=== PATIENT | male | born 1980 | race Caucasian/White ===

== ENCOUNTER → 2018-09-29 | Outpatient (REF) | payer OTHER ==
[2018-10-06 14:07] LABS: PROTEIN C ANTIGEN 149 % (60-150); PROTEIN S ANTIGEN FREE 145 % (57-157); PROTEIN S ANTIGEN TOTAL 113 % (60-150)
== END ==
LOC: M LAB REF 15:15
PROVIDERS: ATTEND Surgery
DX: I74.3 Embolism and thrombosis of arteries of the lower extremities (principal)

== ENCOUNTER 2018-12-04 10:33 | Inpatient (IN) | payer OTHER ==
[~2018-12-04] VITALS: Ht 170.2 cm; Wt 99.8 kg
[~2018-12-04 10:33] MED LIST: ACET-683 PO; AMLO10TA5 PO; CARV25TA PO; GABA-843 PO; HYDR12CA PO; LIDOCAINE 1% MDV 20ML VIAL SQ PRN; LOSA100T50 PO; LR 1,000 ML IV ONE; MELA5TAB20 PO; NORT25CA2 PO; OXYC-517 PO; XARE20TA PO; ceFAZolin SOD 1 GM in D5W MINI-BAG PLUS 50 ML IV ONE
[2018-12-04] MEDS ORDERED: TIZA4TAB4 PO (11:20)
[2018-12-04] MEDS ORDERED: fentaNYL 100 MCG/2 ML INJECTION (J3010) As Ordered ONE (12:03)
[2018-12-04] MEDS ORDERED: MIDAZOLAM INJ 2 MG/2 ML VIAL (J2250) As Ordered ONE (12:03)
[2018-12-04] MEDS ORDERED: LIDOCAINE 2% INJ 100 MG/5 ML SDV (FOR ANES.) As Ordered ONE (12:03)
[2018-12-04] MEDS ORDERED: PROPOFOL 200 MG/20 ML VIAL As Ordered ONE ×2 (12:03→12:06)
[2018-12-04] MEDS ORDERED: ROCURONIUM BROMIDE 50 MG/5 ML VIAL As Ordered ONE (13:21)
[2018-12-04] MEDS ORDERED: EPINEPHrine INJ 1 MG/ML 1ML AMP As Ordered ONE (13:34)
[2018-12-04] MEDS ORDERED: BACITRACIN PWD 50,000 UNITS VIAL As Ordered ONE ×2 (13:35→14:31)
[2018-12-04] MEDS ORDERED: ACETAMINOPHEN 1000MG 100ML IV BTL (OFIRMEV) (J0131 PER 10MG) As Ordered ONE (14:35)
[2018-12-04 15:00] VITALS: BP 187/106
[2018-12-04] MEDS ORDERED: dexameTHASONE 4 MG/ML 1ML VIAL (J1100) As Ordered ONE (15:10)
[2018-12-04] MEDS ORDERED: ONDANSETRON 4MG/2ML VIAL (J2405) As Ordered ONE (15:10)
[2018-12-04 15:30] VITALS: BP 159/103
--- NOTE | 2018-12-04 15:42 | POST-OPPD ---
Postoperative Procedure Note Date Of Procedure: Dec 04, 2018 PREOPERATIVE DIAGNOSIS: Open wound right lateral leg and left stump POSTOPERATIVE DIAGNOSIS: same FINDINGS: Open wound Right lateral leg 11x2cm, Left stump open wound 3.5x3cm PROCEDURE: Irrigation and debridement right and left leg wounds, STSG to Right lateral wound and Left stump wound. Donor site is right thigh SURGEON: Dr Garcia ANESTHESIA: General SPECIMENS: Culture right leg wound and left stump wound ESTIMATED BLOOD LOSS: 10cc REPLACED: none DRAINS: none COMPLICATIONS: none POSTOPERATIVE CONDITION: stable [id number] SALONI GARCIA DO Dec 04, 2018 15:42
[2018-12-04 16:00] VITALS: BP 151/104
[2018-12-04] MEDS ORDERED: HYDROMORPHONE HCL 0.5 MG/ 0.5 ML SYRINGE (J1170 PER 1) IV PRN (16:00)
[2018-12-04] MEDS ORDERED: LR 1,000 ML IV SCH ×2 (16:00)
[2018-12-04] MEDS ORDERED: ONDANSETRON 4MG/2ML VIAL (J2405) IV PRN (16:00)
[2018-12-04] MEDS ORDERED: PERCOCET 5MG/325MG TAB PO PRN (16:00)
[2018-12-04] MEDS ORDERED: fentaNYL 100 MCG/2 ML INJECTION (J3010) IV PRN (16:00)
[2018-12-04] MEDS ORDERED: ACETAMINOPHEN TAB 650MG DOSE (2X325MG) PO PRN (17:30)
[2018-12-04] MEDS ORDERED: oxyCODONE 5MG TAB PO PRN (17:30)
--- NOTE | 2018-12-04 17:31 | IPN ---
DATE: 12/04/2018 The patient was discussed with Dr. Puri, the plastic surgeon, who performed the procedure today. The patient was examined and interviewed on five [place]. The case was discussed with Dr. Villegas about specifically continuing the Xarelto anticoagulation. Dr. Villegas will be communicating with Dr. Jaxson leon concerning the case as well.
[2018-12-04 18:15] VITALS: BP 161/105
[2018-12-04] MEDS: RIVAROXABAN 20 MG TAB (XARELTO) PO SCH (18:26)
--- NOTE | 2018-12-04 18:37 | RO ---
DATE OF PROCEDURE: 12/04/2018 PREOPERATIVE DIAGNOSIS: Open wound right lateral leg and left stump. POSTOPERATIVE DIAGNOSIS: Open wound right lateral leg and left stump. OPERATIVE PROCEDURE: Irrigation and debridement right and left leg wounds, and split thickness skin graft to right lateral wound and a left stump wound. Donor site is right thigh. SURGEON: Deepti Puri DO HOST HOSTESS: ANESTHESIA: General. SPECIMENS: Cultures sent right leg wound and a left stump wound. ESTIMATED BLOOD LOSS: 10 mL REPLACED: No blood replacement needed. DRAINS: None. INDICATION FOR THE PROCEDURE: This is a 38-year-old male who has chronic slow healing wounds in the right lateral leg from previous fasciotomy that he had and on the left stump on the lateral portion and dorsum from a delayed closure of the stump, below the knee amputation (BKA). The patient is scheduled for split thickness skin graft and irrigation of the wounds. All the risks and benefits, and alternatives discussed with the patient and he is ready to proceed. The wound measures, the left side 3.5 x 3 cm and on the right side 11 x 2 cm. DESCRIPTION OF PROCEDURE: The patient was brought into the operating room, placed in supine position, preoperative antibiotics were given. General anesthesia induced. He was prepped and draped in the usual sterile fashion. We did measure the wounds on the table and then debrided the wounds using curettes. Cultures were sent from both wounds. The wound bed is in good quality and ready for grafting. We irrigated both wounds with pulse child life assistant with 1 liter of normal saline with Bacitracin solution. When that portion of the procedure was complete, the donor site was marked for the skin grafting and a 2 inch strip of skin was harvested using a dermatome with 1/12,000 of an inch thickness. The skin was harvested. The wounds covered with gauze soaked with epinephrine solution. The skin was matched 1:1.5 ration and then we applied the skin to the right lateral leg. The graft was stapled to the wound. The rest of the skin was fitted for the left stump open wound and also was stapled. Bolster dressings were applied on the left stump wound with nylon sutures using Xeroform and bacitracin soaked gauze and on the right we used an open Bolster technique and then Kerlix wrapped and an Nishant wrap on the right side. Donor site was dressed with Xeroform, Telfa and, 4 x 4s and Tegaderm. Patient was extubated in the operating room without any difficulties and transferred to the recovery room in stable condition. MTDD
--- NOTE | 2018-12-04 18:52 | HPEPDOC ---
[facility] Medical History & Physical Date of Admission Dec 04, 2018 Date of Service: Dec 04, 2018 Attending Physician: Monroe Cox MD History and Physical CHIEF COMPLAINT: Left stump and right leg nonhealing wound s/p skin graft HISTORY OF PRESENT ILLNESS: Patient is a 38 year old male who presented to [facility] for skin grafting of his right lateral leg and left stump. In August 2018 patient had noted numbness in his legs and toes bilaterally. He stated that he developed coldness in his toes and presented [place] where he was found to have occlusion of his right and left lower extremity. The patient was sent to [facility] where he received arterial stents. Unfortunately, his left leg was unsalvageable and he received a below the knee amputation. Subsequently the patient developed compartment syndrome in both his legs requiring fasciotomy. Sine receiving fasciotomy the patient has had open wounds which were managed by Dr. Gonzalez of Wound Care. The patient was referred for skin grafting of his two open wounds. The patient has received autologous skin grafting of his right lateral leg and left stump. His donor site was from his right lateral thigh. The patients wound was cultured and patient was transferred to medical floor. The hospitalist service was contacted for management of the patient medical conditions while hospitalized. PAST MEDICAL HISTORY: 1. 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 Hypertension 3. Insomnia 4. Phantom limb pain 5. Obstructive Sleep Apnea PAST SURGICAL HISTORY: 1. Lower leg arterial stent placement 2. Left below the knee amputation 3. Amputation of right great toe and right 5th distal phalange 4. Fasciotomy of right and left leg in setting of compartment syndrome 5. Left stump and right leg autologous skin graft 6. Sinus surgery for Obstructive sleep apnea SOCIAL HISTORY: Patient is a current smoker. He smokes approximately 5 cigarettes a day. He has been smoking since he was 16 year old. He denies any illicit or IV drug use. He admits to occasional social alcohol use. 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 Her only medical condition is hypertension. Patients father is alive and well and also has hypertension. Patient has one brother who is alive and well with no medical conditions to his knowledge ALLERGIES: Please see below. REVIEW OF SYSTEMS: CONSTITUTIONAL: Denies fevers, chills, unintentional weightloss. HEENT: Denies changes in vision. Denies dysphagia CARDIOVASCULAR: Denies chest pain or discomfort. Denies feelings of heart racing RESPIRATORY: Denies shortness of breath. Denies wheezing. GASTROINTESTINAL: Denies abdominal pain. Denies constipation. Denies diarrhea GENITOURINARY: Denies dysuria. Denies increased frequency. SKIN: Patient has left leg stump wound. Right lateral thigh wound, right leg wound. MUSCULOSKELETAL: Denies muscle aches or pains NEUROLOGICAL: Denies muscle weakness PSYCHIATRIC: Denies depression or anxiety ENDOCRINE: Denies heat or cold intolerance HEMATOLOGIC/LYMPHATIC: Admits to history of thrombosis HOME MEDICATIONS: Please see below. PHYSICAL EXAMINATION: VITAL SIGNS: Temperature 98.8, pulse 97, respiratory rate 20, blood pressure 113/55, pulse oximetry 92% on room air. GENERAL APPEARANCE: Awake, alert, and oriented. Lying in bed comfortably. Appears in no acute distress. He is pleasant and conversive HEENT: Atraumatic, normocephalic. Eyes are nonicteric. Trachea is midline. Dentition is fair CARDIOVASCULAR: Normal S1, S2. Regular rate and rhythm. No clicks rubs or murmurs. No JVD. No carotid bruits LUNGS: Breath sounds are slightly diminished in the bases with fine crackles. Good respiratory effort. No wheezes. No dullness to percussion. No accessory muscle use ABDOMEN: Soft, nontender. No rebound tenderness or guarding. Nondistended. Normoactive bowel sounds throughout EXTREMITIES: Left leg BKA currently wrapped. Right leg wrapped in bandage. Bandage over right lateral thigh. Amputation of right great toe and right 5th distal phalange NEUROLOGICAL: No focal neurological deficits PSYCHIATRIC: Mood and affect appropriate for situation LABORATORY DATA: See below. MICROBIOLOGY: Please see below. ASSESSMENT: Patient is a 38 year old male s/p right leg wound and left stump autologous graft placement . PLAN: 1. S/P Left leg stump and right leg wound autologous graft placement -Patient is followed by Plastic Surgery. Patient is to be placed on strict bed rest. -Home pain medications continued 2. Hypertension -Patient is currently well controlled will continue home medications 3. History of thrombosis with stent placement -unknown etiology of patients cause of thrombosis. He is currently anticoagulated with Xarelto 20mg. Will continue during his hospitalization. 4. Tobacco abuse -Patient currently smokes 5 cigarettes a day. He has been counseled on smoking cessation Vital Signs Vital Signs Date Time Temp Pulse Resp B/P (MAP) Pulse Ox O2 Delivery O2 Flow Rate FiO2 12/04/18 16:00 79 18 151/91 (111) 95 12/04/18 15:40 97.5 12/04/18 15:20 10 Laboratory Data Microbiology Microbiology 12/04/18 Wound Culture, Received Pending 12/04/18 Wound Culture, Received Pending Home Medications Scheduled Amlodipine Besylate (Amlodipine Besylate) 10 Mg Tablet, 10 MG PO DAILY Carvedilol (Carvedilol) 25 Mg Tablet, 25 MG PO BID Gabapentin (Gabapentin) 300 Mg Capsule, 300 MG PO TID Hydrochlorothiazide (Hydrochlorothiazide) 12.5 Mg Capsule, 12.5 MG PO DAILY Losartan Potassium (Losartan Potassium) 100 Mg Tablet, 100 MG PO DAILY Melatonin (Melatonin) 5 Mg Tab.rapdis, 5 MG PO QHS Nortriptyline HCl (Nortriptyline HCl) 25 Mg Capsule, 25 MG PO QHS Rivaroxaban (Xarelto) 20 Mg Tablet, 20 MG PO QPM Scheduled PRN Acetaminophen (Acetaminophen) 500 Mg Tablet, 1,000 MG PO BID PRN for ABDOMINAL PAIN Oxycodone HCl (Oxycodone HCl) 5 Mg Tablet, 5 MG PO PRN PRN for PAIN Tizanidine HCl (Tizanidine HCl) 4 Mg Tablet, 4 MG PO QIDP PRN for SPASMS Allergies Uncoded Allergies: MENS MULTIVITAMIN (Allergy, Intermediate, lip swelling, hands redness, 11/25/18) A-FIB/CHADSVASC A-FIB History Current/History of A-Fib/PAF?: No KAMILA WRIGHT DO Dec 04, 2018 17:21
[2018-12-04 18:58] VITALS: BP 156/105
[2018-12-04 20:17] VITALS: BP 159/105
[2018-12-04] MEDS: NORTRIPTYLINE 25 MG CAP PO SCH (21:34)
[2018-12-04] MEDS: GABAPENTIN 300 MG CAP PO SCH (21:34)
[2018-12-04] MEDS: CARVedilol 12.5 MG TAB PO SCH (21:35)
[2018-12-05 02:00] VITALS: BP 152/104
[2018-12-05 06:26] VITALS: BP 158/118
[2018-12-05 06:52] LABS: HEMATOCRIT 42.5 % (42.0-52.0); HEMOGLOBIN 13.5 g/dl (13.5-17.5); MEAN CORPUSCULAR HEMOGLOBIN 26.6 pg (27.0-33.0); MEAN CORPUSCULAR HGB CONC 31.8 g/dl (32.0-36.5); MEAN CORPUSCULAR VOLUME 83.8 fl (80.0-96.0); PLATELET COUNT, AUTOMATED 363 10^3/uL (150-450); RED BLOOD COUNT 5.07 10^6/uL (4.30-6.10); WHITE BLOOD COUNT 9.9 10^3/uL (4.0-10.0)
[2018-12-05 07:19] LABS: BLOOD UREA NITROGEN 16 MG/DL (7-18); CALCIUM LEVEL 8.7 MG/DL (8.5-10.1); CARBON DIOXIDE LEVEL 28 MEQ/L (21-32); CHLORIDE LEVEL 103 MEQ/L (98-107); CREATININE FOR GFR 0.92 MG/DL (0.70-1.30); GLOMERULAR FILTRATION RATE > 60.0 (>60); GLUCOSE, FASTING 120 MG/DL (70-100); POTASSIUM SERUM 4.1 MEQ/L (3.5-5.1); SODIUM LEVEL 139 MEQ/L (136-145)
[2018-12-05] MEDS: CARVedilol 12.5 MG TAB PO SCH ×2 (09:09→20:25)
[2018-12-05] MEDS: LOSARTAN 50 MG TAB PO SCH (09:10)
[2018-12-05] MEDS: hydroCHLOROthiazide 12.5 MG CAPSULE PO SCH (09:10)
[2018-12-05] MEDS: amLODIPine 10 MG TAB PO SCH (09:10)
[2018-12-05] MEDS: GABAPENTIN 300 MG CAP PO SCH ×3 (09:11→20:24)
--- NOTE | 2018-12-05 09:24 | IPNPDOC ---
Text Note Date of Service The patient was seen on 12/05/18. NOTE Pt was seen at bedside today and denies any acute events or changes to his condition overnight. He states he is eating well and was able to sleep well also. He denies any current pain or itchiness in his legs or elsewhere. He says he has not had a BM since admission but that he believes he will tonight. He denies any N/V, chest pain, shortness of breath, or dysuria. Physical Exam: General: Pt was laying in his bed watching videos on his phone in no apparent distress. HEENT: Good dentition. Mucous membranes are moist. No ulcers, sores, or plaques noted. No lymphadenopathy. 1-2 cm scar noted on his L periorbital cheek. Pulmonary: Lungs CTA B/L - crackles heard yesterday (12/04) no longer present. No consolidation noted upon percussion. Vesicular breath sounds heard throughout exam. Cardiovascular: Eurythmic and tachycardic. Normal S1 and S2 noted with no murmurs, knocks, rubs noted. Hypertensive at 146/89. No carotid bruits noted. Abdomen: No pain on palpation or guarding noted. Normal bowel sounds in all 4 quadrants. No bruising or organomegaly noted on exam. Extremities: Skin graft harvest site on L thigh bandaged with wrap. Some blood noted from a partially uncovered section of his harvest site on his proximal R thigh. L leg stump and R foot bandaged as well and not painful to palpation. Good capillary refill in his fingers with refill time of 3-4 seconds in his toes. Toes are cool to touch. No pain to palpation of his R calf or foot. No rashes noted. Psych: Well-mannered and cooperative to exam. Alert and aware X3. Pt seemed happy to talk about his father classic muscle cars. Asked about visiting hour for his parents who are coming tomorrow. Is eating regularly. Denies SI or depression currently. Assessment and Plan: #Skin Graft following B/L fasciotomies and L BKA: Patient is to be kept on strict bed rest. His wounds are being managed by Plastic Surgery. He has some oozing at his harvest site. He denies any current pain and is currently on Oxycodone and acetaminophen PRN. #HTN: Pt currently hypertensive. He is currently on HCTZ 12.5 mg, amlodipine 10 mg, Losartan 100 mg, and Carvedilol 25 mg. . Pt will likely need further workup for secondary causes of HTN upon discharge. HTN could be related to pain #Phantom limb pain: Continue Gabapentin. Pt denies worsening of his pain or paresthesia. Disposition: Patient will be hospitalized for at least one week while graft sets. VS,Fishbone, I+O VS, Fishbone, I+O Laboratory Tests 12/05/18 05:40 Red Blood Count 5.07, Mean Corpuscular Volume 83.8, Mean Corpuscular Hemoglobin 26.6 L, Mean Corpuscular Hemoglobin Concent 31.8 L, Red Cell Distribution Width 16.1 H, Calcium Level 8.7 Vital Signs Date Time Temp Pulse Resp B/P (MAP) Pulse Ox O2 Delivery O2 Flow Rate FiO2 12/05/18 06:26 99.6 94 19 158/118 (131) 98 12/04/18 15:20 10 I&O- Last 24 Hours up to 6 AM 12/05/18 06:00 Intake Total 3880 ml Output Total 3650 ml Balance 230 ml GME ATTESTATION GME ATTESTATION My faculty preceptor for this patient encounter was physically present during the encounter and was fully available. All aspects of the patient interview, ex amination, medical decision making process, and medical care plan development were reviewed and approved by the faculty preceptor. The faculty preceptor is aware and concurs with the plan as stated in the body of this note and will attest to such by his/her cosignature. ATTENDING NOTE Patient was seen and examined by me this morning with the residents. Agree with the above assessment and plan FATOUMATA DINERO OMS-3 Dec 05, 2018 09:24 KAMILA WRIGHT DO Dec 05, 2018 17:51 VEDA REDMOND MD Dec 06, 2018 16:57
--- NOTE | 2018-12-05 10:16 | IPNPDOC ---
Subjective General Date/Time Seen The patient was seen on 12/05/18 at 8:09. Subject Chief Complaint/History The patient is a 38-year-old male admitted with a reason for visit of Thrombocytopenia, Open Wound Right Lower Extremity. Patient s/p STSG to right lateral leg wound and left stump wound. Donor site Right thigh. Doing well today. Donor site has significant oozing, controlled with pressure. Pain controlled with meds. No other complains. No nausea, vomiting. Current Medications Current Medications Current Medications Medications (Trade) Dose Ordered Sig/Milla Route PRN Reason Start Time Stop Time Status Last Admin Dose Admin Acetaminophen (Tylenol Tab) 650 mg Q4H PRN PO PAIN OR FEVER 12/04/18 17:30 Amlodipine Besylate (Norvasc) 10 mg DAILY PO 12/05/18 09:00 12/05/18 09:10 Carvedilol (COReg) 25 mg BID PO 12/04/18 21:00 12/05/18 09:09 Fentanyl Citrate (Sublimaze) 25 mcg Q5MP PRN IV MODERATE PAIN (PS 4-7) 12/04/18 16:00 12/04/18 17:00 DC Gabapentin (Neurontin) 300 mg TID PO 12/04/18 21:00 12/05/18 09:11 Hydrochlorothiazide (Hydrodiuril) 12.5 mg DAILY PO 12/05/18 09:00 12/05/18 09:10 Hydromorphone HCl (Dilaudid) 0.4 mg Q5MP PRN IV MODERATE/SEVERE PAIN (PS 5-10) 12/04/18 16:00 12/04/18 17:00 DC Lactated Ringer's 1,000 ml @ 75 mls/hr [id number] IV 12/04/18 16:00 12/05/18 09:54 DC 12/04/18 18:26 Lactated Ringer's 1,000 ml @ 100 mls/hr Q10H IV 12/04/18 16:00 12/04/18 17:00 DC Lidocaine HCl (LIDOCAINE 1% MDV 20ml) 0.1 ml ONCE PRN SQ DISCOMFORT BEFORE IV START 12/04/18 06:00 12/04/18 15:46 DC Losartan Potassium (Cozaar) 100 mg DAILY PO 12/05/18 09:00 12/05/18 09:10 Nortriptyline HCl (Pamelor) 25 mg QHS PO 12/04/18 21:00 12/04/18 21:34 Ondansetron HCl (ZOFRAN INJection) 4 mg Q4HP PRN IV NAUSEA OR VOMITING 12/04/18 16:00 12/04/18 17:00 DC Oxycodone HCl (Roxicodone, Oxyir) 5 mg Q6HP PRN PO PAIN 12/04/18 17:30 Oxycodone/ Acetaminophen (Percocet 5mg/ 325mg Tablet) 1 tab ASDIRECTED PRN PO MILD/MODERATE PAIN (PS 1-7) 12/04/18 16:00 12/04/18 17:00 DC Rivaroxaban (Xarelto) 20 mg QPM@1800 PO 12/04/18 18:00 12/04/18 18:26 Allergies Uncoded Allergies: MENS MULTIVITAMIN (Allergy, Intermediate, lip swelling, hands redness, 11/25/18) Objective Physical Examination Examination GENERAL APPEARANCE:Patient seen, laying in bed, awake, alert, and oriented. Comfortable, in no acute distress. SKIN: Warm and moist. Dressings intact. Donor site with serosanguinous oozing, no active bleeding. Mild pain. HEENT: Normocephalic, atraumatic. [place] palpebral conjunctiva, anicteric sclerae. Lips and mucosa appear moist. NECK: Supple, no thyromegaly. No obvious jugular venous distention. LUNGS: Clear to auscultation bilaterally. No wheezing appreciated. HEART: No chest wall abnormalities. Regular rate and rhythm with no murmurs a ppreciated. EXTREMITIES: Extremities have no deformities. No edema identified in both extremities. Vital Signs Vital Signs Date Time Temp Pulse Resp B/P (MAP) Pulse Ox O2 Delivery O2 Flow Rate FiO2 12/05/18 09:10 158/118 12/05/18 09:10 94 12/05/18 06:26 99.6 19 98 12/04/18 15:20 10 I&Os I&O- Last 24 Hours up to 6 AM 12/05/18 06:00 Intake Total 3880 ml Output Total 3650 ml Balance 230 ml Laboratory Data Labs 24H Laboratory Tests 2 12/05/18 05:40: Nucleated Red Blood Cells % (auto) 0.0, Anion Gap 8, Glomerular Filtration Rate > 60.0, Blood Urea Nitrogen 16, Creatinine 0.92, Sodium Level 139, Potassium Level 4.1, Chloride Level 103, Carbon Dioxide Level 28, Calcium Level 8.7 CBC/BMP Laboratory Tests 12/05/18 05:40 Red Blood Count 5.07, Mean Corpuscular Volume 83.8, Mean Corpuscular Hemoglobin 26.6 L, Mean Corpuscular Hemoglobin Concent 31.8 L, Red Cell Distribution Width 16.1 H, Calcium Level 8.7 Microbiology Microbiology 12/04/18 Wound Culture, Received Pending 12/04/18 Wound Culture, Received Pending Impression Chronic open wounds right leg and left stump. S/p STSG to Right leg and left stump POD 1. Doing well post op. Medical management by medicine team. Donor site dressing reinforced. Plan to remove outer dressing Saturday. Recipient site plan to remove 12/11/18 Continue with bedrest. Regular diet D/c IVF Continue with wound monitoring. Plan / VTE VTE Prophylaxis Ordered?: Yes VTE Exclusion Mechanical Proph: Other (On Xarelto) SALONI GARCIA DO Dec 05, 2018 10:16
[2018-12-05 14:00] VITALS: BP 146/89
[2018-12-05] MEDS: RIVAROXABAN 20 MG TAB (XARELTO) PO SCH (17:08)
[2018-12-05] MEDS: NORTRIPTYLINE 25 MG CAP PO SCH (20:24)
[2018-12-05 22:00] VITALS: BP 146/90
[2018-12-06 06:00] VITALS: BP 156/101
[2018-12-06] MEDS ORDERED: VANCOMYCIN HCL 1,000 MG, VIAL MATE ADAPTER 1 EACH in D5W 250 ML IV SCH (09:30)
[2018-12-06] MEDS: CARVedilol 12.5 MG TAB PO SCH ×2 (09:44→21:39)
[2018-12-06] MEDS: LOSARTAN 50 MG TAB PO SCH (09:44)
[2018-12-06] MEDS: GABAPENTIN 300 MG CAP PO SCH ×3 (09:44→21:39)
[2018-12-06] MEDS: amLODIPine 10 MG TAB PO SCH (09:45)
[2018-12-06] MEDS: hydroCHLOROthiazide 12.5 MG CAPSULE PO SCH (09:45)
[2018-12-06] MEDS ORDERED: VANCOMYCIN HCL 1,000 MG, VIAL MATE ADAPTER 1 EACH in D5W 250 ML IV ONE (10:00)
--- NOTE | 2018-12-06 12:57 | IPNPDOC ---
Text Note Date of Service The patient was seen on 12/06/18. NOTE Pt was seen at bedside today and denies any acute events or changes to his condition overnight. Physical Exam: General: Pt was laying in his bed watching videos on his phone in no apparent distress. HEENT: Good dentition. Mucous membranes are moist. Pulmonary: Lungs CTA B/L, clear breath sounds heard throughout exam. No rhonchi, no rales Cardiovascular: Normal S1 and S2 noted with no murmurs. No carotid bruits noted. Abdomen: No pain on palpation or guarding noted. Normal bowel sounds in all 4 quadrants. No bruising or organomegaly noted on exam. Extremities: Skin graft harvest site on L thigh bandaged with wrap. Some blood noted from a partially uncovered section of his harvest site on his proximal R thigh. L leg stump and R foot bandaged as well and not painful to palpation. Neurologic exam grossly normal Psych: Alert and aware X3. Assessment and Plan: This is a young patient who unfortunately was diagnosed with hypercoagulable state. After he was diagnosed with bilateral acute limb ischemia resulting in left BKA and bilateral compartment syndrome resulting in bilateral fasciotomies. He has had an extensive workup for hypercoagulable state with no definite diagnosis. He has been kept on Xarelto. He underwent skin graft from the left thigh harvest site, and currently has been managed by plastic surgery. The patient on wound culture was growing MRSA with Enterobacter and for that reason the patient was initially started on vancomycin, but as the patient does not have an excellent does not want to be poked again, the patient has been kept on Zyvox. Mainly care has been given by plastic surgery and will continue to follow with them 1. Skin Graft due to chronic ulcers following B/L fasciotomies and LBKA: Patient is to be kept on strict bed rest. His wounds are being managed by Plastic Surgery. He has some oozing at his harvest site. He denies any current pain and is currently on Oxycodone and acetaminophen PRN. He continues to be on Xarelto which has been cleared by plastic surgery. Will touch base with them again. As the wound cultures are growing Enterobacter as well as MRSA. The patient has been kept on Zyvox 2. HTN: He is currently on HCTZ 12.5 mg, amlodipine 10 mg, Losartan 100 mg, and Carvedilol 25 mg. . 3. Phantom limb pain: Continue Gabapentin. Pt denies worsening of his pain or paresthesia. 4. Hypercoagulable state. Under evaluation at the outside facility. And he continue with Xarelto PT, OT Disposition: Patient will be hospitalized for at least one week while graft sets as per plastic surgery. Erin Escobar M.D VS,Terra, I+O VS, Terra, I+O Vital Signs Date Time Temp Pulse Resp B/P (MAP) Pulse Ox O2 Delivery O2 Flow Rate FiO2 12/06/18 09:45 83 152/102 12/06/18 06:00 98.5 18 96 12/04/18 15:20 10 I&O- Last 24 Hours up to 6 AM 12/06/18 06:00 Intake Total 2100 ml Output Total 1100 ml Balance 1000 ml VEDA REDMOND MD Dec 06, 2018 12:57
--- NOTE | 2018-12-06 13:00 | IPNPDOC ---
Subjective General Date/Time Seen The patient was seen on 12/06/18 at 12:48. Subject Chief Complaint/History The patient is a 38-year-old male admitted with a reason for visit of Thrombocytopenia, Open Wound Right Lower Extremity. Patient s/p STSG POD 2. Doing well Pain controlled. Did not have BM yet. Oozing from donor size greatly diminished. Current Medications Current Medications Current Medications Medications (Trade) Dose Ordered Sig/Milla Route PRN Reason Start Time Stop Time Status Last Admin Dose Admin Acetaminophen (Tylenol Tab) 650 mg Q4H PRN PO PAIN OR FEVER 12/04/18 17:30 Amlodipine Besylate (Norvasc) 10 mg DAILY PO 12/05/18 09:00 12/06/18 09:45 Carvedilol (COReg) 25 mg BID PO 12/04/18 21:00 12/06/18 09:44 Docusate Sodium (Colace) 100 mg TID PO 12/06/18 16:00 Fentanyl Citrate (Sublimaze) 25 mcg Q5MP PRN IV MODERATE PAIN (PS 4-7) 12/04/18 16:00 12/04/18 17:00 DC Gabapentin (Neurontin) 300 mg TID PO 12/04/18 21:00 12/06/18 09:44 Hydrochlorothiazide (Hydrodiuril) 12.5 mg DAILY PO 12/05/18 09:00 12/06/18 09:45 Hydromorphone HCl (Dilaudid) 0.4 mg Q5MP PRN IV MODERATE/SEVERE PAIN (PS 5-10) 12/04/18 16:00 12/04/18 17:00 DC Lactated Ringer's 1,000 ml @ 75 mls/hr [id number] IV 12/04/18 16:00 12/05/18 09:54 DC 12/04/18 18:26 Lactated Ringer's 1,000 ml @ 100 mls/hr Q10H IV 12/04/18 16:00 12/04/18 17:00 DC Lidocaine HCl (LIDOCAINE 1% MDV 20ml) 0.1 ml ONCE PRN SQ DISCOMFORT BEFORE IV START 12/04/18 06:00 12/04/18 15:46 DC Linezolid (Zyvox) 600 mg BID PO 12/06/18 21:00 Losartan Potassium (Cozaar) 100 mg DAILY PO 12/05/18 09:00 12/06/18 09:44 Nortriptyline HCl (Pamelor) 25 mg QHS PO 12/04/18 21:00 12/06/18 11:11 DC 12/05/18 20:24 Ondansetron HCl (ZOFRAN INJection) 4 mg Q4HP PRN IV NAUSEA OR VOMITING 12/04/18 16:00 12/04/18 17:00 DC Oxycodone HCl (Roxicodone, Oxyir) 5 mg Q6HP PRN PO PAIN 12/04/18 17:30 Oxycodone/ Acetaminophen (Percocet 5mg/ 325mg Tablet) 1 tab ASDIRECTED PRN PO MILD/MODERATE PAIN (PS 1-7) 12/04/18 16:00 12/04/18 17:00 DC Rivaroxaban (Xarelto) 20 mg QPM@1800 PO 12/04/18 18:00 12/05/18 17:08 Vancomycin HCl 1000 mg/IV Miscellaneous Supplies 1 each/ Dextrose 270 ml @ 270 mls/hr Q12H IV 12/06/18 09:30 12/06/18 10:58 DC Allergies Uncoded Allergies: MENS MULTIVITAMIN (Allergy, Intermediate, lip swelling, hands redness, 11/25/18) Objective Physical Examination Examination GENERAL APPEARANCE:Patient seen, laying in bed, awake, alert, and oriented. Comfortable, in no acute distress. SKIN: Warm and moist. LUNGS: Clear to auscultation bilaterally. No wheezing appreciated. HEART: No chest wall abnormalities. Regular rate and rhythm with no murmurs appreciated. EXTREMITIES: Right leg with dressing in place. Donor site: right upper thigh with residual serosanguinous oozing, much improved. Left stump with dressing in place. No swelling, no pain. Vital Signs Vital Signs Date Time Temp Pulse Resp B/P (MAP) Pulse Ox O2 Delivery O2 Flow Rate FiO2 12/06/18 09:45 83 152/102 12/06/18 06:00 98.5 18 96 12/04/18 15:20 10 I&Os I&O- Last 24 Hours up to 6 AM 12/06/18 06:00 Intake Total 2100 ml Output Total 1100 ml Balance 1000 ml Laboratory Data Microbiology Microbiology 12/04/18 Wound Culture - Preliminary, Resulted Enterobacter Cloacae Complex Strep Agalactiae Group B 12/04/18 Wound Culture - Preliminary, Resulted Enterobacter Cloacae Complex Staph.aureus Methicillin Resis Strep Agalactiae Group B Impression S/p Irrigation and debridment Left stump and Right lateral open wounds with STSG closure. Cultures (+), ID consult. Abx started today. Donor site dressing removed. Keep open to air to dry. Recipient sites dressing will remove 12/11/18 Colace Continue with bedrest. All finding and plan discussed with patient Plan / VTE VTE Prophylaxis Ordered?: Yes VTE Exclusion Mechanical Proph: Other (On Xarelto) SALONI GARCIA DO Dec 06, 2018 13:00
[2018-12-06 14:00] VITALS: BP 157/103
[2018-12-06 14:30] VITALS: BP 144/98
[2018-12-06] MEDS: DOCUSATE SODIUM 100 MG CAP PO SCH ×2 (16:15→21:00)
[2018-12-06] MEDS: RIVAROXABAN 20 MG TAB (XARELTO) PO SCH (17:46)
[2018-12-06] MEDS: LINEZOLID 600MG TABLET (ZYVOX) PO SCH (21:40)
[2018-12-06 22:00] VITALS: BP 152/88
[2018-12-07 06:00] VITALS: BP 140/82
[2018-12-07 09:25] VITALS: BP 173/141
[2018-12-07] MEDS: hydroCHLOROthiazide 12.5 MG CAPSULE PO SCH (09:25)
[2018-12-07] MEDS: LOSARTAN 50 MG TAB PO SCH (09:25)
[2018-12-07] MEDS: DOCUSATE SODIUM 100 MG CAP PO SCH ×3 (09:25→21:02)
[2018-12-07] MEDS: CARVedilol 12.5 MG TAB PO SCH ×2 (09:26→21:03)
[2018-12-07] MEDS: GABAPENTIN 300 MG CAP PO SCH ×3 (09:26→21:02)
[2018-12-07] MEDS: amLODIPine 10 MG TAB PO SCH (09:26)
[2018-12-07] MEDS: LINEZOLID 600MG TABLET (ZYVOX) PO SCH ×2 (09:26→21:02)
--- NOTE | 2018-12-07 11:21 | IPNPDOC ---
Subjective Date Seen The patient was seen on 12/07/18. Subjective Chief Complaint/HPI Patient is a completely sitting in bed as per patient, has been fanning his dressing on right side of his no new complaints General: Denies: ROS Unobtainable, Chills, Night Sweats, Fatigue, Malaise, Normal Appetite, Other Symptoms Constitutional: Denies: Chills, Fever, Malaise, Night Sweats, Weakness, Fatigue, Weight Loss, Lethargy, Other Skin: Denies: Rash, Lesions, Jaundice, Bruising, Itching, Dry, Breakdown, Nail Changes, Other Pulmonary: Denies: Dyspnea, Cough, Pleuritic Chest Pain, Other Symptoms Cardiovascular: Denies: Chest Pain, Palpitations, Orthopnea, Paroxysmal Noc. Dyspnea, Edema, Lt Headedness, Other Symptoms Gastrointestinal: Denies: Nausea, Vomiting, Abdominal Pain, Diarrhea, Constipation, Melena, Hematochezia, Other Symptoms Musculoskeletal: Denies: Neck Pain, Back Pain, Shoulder Pain, Arm Pain, Hand Pain, Leg Pain, Foot Pain, Joint Pain, Muscle Pain, Spasms, Other Symptoms Neurological: Denies: Weakness, Numbness, Incoordination, Change in speech, Confusion, Seizures, Other Symptoms Objective Physical Examination General Exam: Positive: Alert, Cooperative Eye Exam: Positive: PERRLA, Conjunctiva & lids normal ENT Exam: Positive: Atraumatic Chest Exam: Positive: Clear to auscultation, Normal air movement Heart Exam: Positive: Rate Normal, Normal S1, Normal S2 Abdomen Exam: Positive: Normal bowel sounds, Soft, Tenderness Extremity Exam: Positive: Normal pulses Skin Exam: Positive: Nl turgor and temperature Neuro Exam: Positive: Strength at 5/5 X4 ext, Sensation Intact Assessment /Plan Problems (1) History of skin graft Status: Acute Problem Text: Skin Graft due to chronic ulcers following B/L fasciotomies and LBKA: Patient is to be kept on strict bed rest. His wounds are being managed by Plastic Surgery. He has some oozing at his harvest site. He denies any current pain and is currently on Oxycodone and acetaminophen PRN. He continues to be on Xarelto which has been cleared by plastic surgery. Will touch base with them again. As the wound cultures are growing Enterobacter as well as MRSA. The patient has been kept on Zyvox further recommendation as per plastic surgery Plan/VTE VTE Prophylaxis Ordered?: Yes VTE Exclusion Mechanical Proph: Other (On Xarelto) VS, I&O, 24H, Fishbone Vital Signs/I&O Vital Signs Date Time Temp Pulse Resp B/P (MAP) Pulse Ox O2 Delivery O2 Flow Rate FiO2 12/07/18 09:26 101 173/141 12/07/18 06:00 97.4 20 99 12/04/18 15:20 10 I&O- Last 24 Hours up to 6 AM 12/07/18 06:00 Intake Total 1100 ml Output Total 3585 ml Balance -2485 ml Laboratory Data Microbiology Microbiology 12/04/18 Wound Culture - Final, Complete Enterobacter Cloacae Complex Strep Agalactiae Group B 12/04/18 Wound Culture - Final, Complete Enterobacter Cloacae Complex Staph.aureus Methicillin Resis Strep Agalactiae Group B MARISSA HAQUE MD Dec 07, 2018 11:21
--- NOTE | 2018-12-07 13:32 | IPNPDOC ---
Subjective General Date/Time Seen The patient was seen on 12/07/18 at 13:28. Subject Chief Complaint/History The patient is a 38-year-old male admitted with a reason for visit of Thrombocytopenia, Open Wound Right Lower Extremity. Patient s/p I/D right and left open wounds with STSG coverage. Doing well today. Had a BM last night. No complains. Current Medications Current Medications Current Medications Medications (Trade) Dose Ordered Sig/Milla Route PRN Reason Start Time Stop Time Status Last Admin Dose Admin Acetaminophen (Tylenol Tab) 650 mg Q4H PRN PO PAIN OR FEVER 12/04/18 17:30 Amlodipine Besylate (Norvasc) 10 mg DAILY PO 12/05/18 09:00 12/07/18 09:26 Carvedilol (COReg) 25 mg BID PO 12/04/18 21:00 12/07/18 09:26 Docusate Sodium (Colace) 100 mg TID PO 12/06/18 16:00 12/07/18 09:25 Fentanyl Citrate (Sublimaze) 25 mcg Q5MP PRN IV MODERATE PAIN (PS 4-7) 12/04/18 16:00 12/04/18 17:00 DC Gabapentin (Neurontin) 300 mg TID PO 12/04/18 21:00 12/07/18 09:26 Hydrochlorothiazide (Hydrodiuril) 12.5 mg DAILY PO 12/05/18 09:00 12/07/18 09:25 Hydromorphone HCl (Dilaudid) 0.4 mg Q5MP PRN IV MODERATE/SEVERE PAIN (PS 5-10) 12/04/18 16:00 12/04/18 17:00 DC Lactated Ringer's 1,000 ml @ 75 mls/hr [id number] IV 12/04/18 16:00 12/05/18 09:54 DC 12/04/18 18:26 Lactated Ringer's 1,000 ml @ 100 mls/hr Q10H IV 12/04/18 16:00 12/04/18 17:00 DC Lidocaine HCl (LIDOCAINE 1% MDV 20ml) 0.1 ml ONCE PRN SQ DISCOMFORT BEFORE IV START 12/04/18 06:00 12/04/18 15:46 DC Linezolid (Zyvox) 600 mg BID PO 12/06/18 21:00 12/07/18 09:26 Losartan Potassium (Cozaar) 100 mg DAILY PO 12/05/18 09:00 12/07/18 09:25 Nortriptyline HCl (Pamelor) 25 mg QHS PO 12/04/18 21:00 12/06/18 11:11 DC 12/05/18 20:24 Ondansetron HCl (ZOFRAN INJection) 4 mg Q4HP PRN IV NAUSEA OR VOMITING 12/04/18 16:00 12/04/18 17:00 DC Oxycodone HCl (Roxicodone, Oxyir) 5 mg Q6HP PRN PO PAIN 12/04/18 17:30 Oxycodone/ Acetaminophen (Percocet 5mg/ 325mg Tablet) 1 tab ASDIRECTED PRN PO MILD/MODERATE PAIN (PS 1-7) 12/04/18 16:00 12/04/18 17:00 DC Rivaroxaban (Xarelto) 20 mg QPM@1800 PO 12/04/18 18:00 12/06/18 17:46 Vancomycin HCl 1000 mg/IV Miscellaneous Supplies 1 each/ Dextrose 270 ml @ 270 mls/hr Q12H IV 12/06/18 09:30 12/06/18 10:58 DC Allergies Uncoded Allergies: MENS MULTIVITAMIN (Allergy, Intermediate, lip swelling, hands redness, 11/25/18) Objective Physical Examination Examination GENERAL APPEARANCE:Patient seen, laying in bed, awake, alert, and oriented. Comfortable, in no acute distress. SKIN: Warm and moist. LUNGS: Clear to auscultation bilaterally. No wheezing appreciated. HEART: No chest wall abnormalities. Regular rate and rhythm with no murmurs appreciated. EXTREMITIES: Both recipient sites with dressings intact, no seeping drainage. Donor site drying well, no signs of infection. Vital Signs Vital Signs Date Time Temp Pulse Resp B/P (MAP) Pulse Ox O2 Delivery O2 Flow Rate FiO2 12/07/18 09:26 101 173/141 12/07/18 06:00 97.4 20 99 12/04/18 15:20 10 I&Os I&O- Last 24 Hours up to 6 AM 12/07/18 06:00 Intake Total 1100 ml Output Total 3585 ml Balance -2485 ml Laboratory Data Microbiology Microbiology 12/04/18 Wound Culture - Final, Complete Enterobacter Cloacae Complex Strep Agalactiae Group B 12/04/18 Wound Culture - Final, Complete Enterobacter Cloacae Complex Staph.aureus Methicillin Resis Strep Agalactiae Group B Impression S/p STSG right and left LE open wounds. Doing well Continue with bedrest Donor site is healing appropriately Continue with medical management per medical team Will remove recipient site dressings on Plan / VTE VTE Prophylaxis Ordered?: Yes VTE Exclusion Mechanical Proph: Other (On Xarelto) SALONI GARCIA DO Dec 07, 2018 13:32
[2018-12-07 14:33] VITALS: BP 130/97
[2018-12-07] MEDS: RIVAROXABAN 20 MG TAB (XARELTO) PO SCH (17:56)
[2018-12-07 20:02] VITALS: BP 136/84
[2018-12-08 06:00] VITALS: BP 142/78
[2018-12-08] MEDS: CARVedilol 12.5 MG TAB PO SCH ×2 (09:34→20:17)
[2018-12-08] MEDS: amLODIPine 10 MG TAB PO SCH (09:35)
[2018-12-08] MEDS: GABAPENTIN 300 MG CAP PO SCH ×3 (09:35→20:16)
[2018-12-08] MEDS: LINEZOLID 600MG TABLET (ZYVOX) PO SCH ×2 (09:35→20:16)
[2018-12-08] MEDS: LOSARTAN 50 MG TAB PO SCH (09:35)
[2018-12-08] MEDS: DOCUSATE SODIUM 100 MG CAP PO SCH ×4 (09:35→20:19)
[2018-12-08] MEDS: hydroCHLOROthiazide 12.5 MG CAPSULE PO SCH (09:36)
--- NOTE | 2018-12-08 12:18 | IPNPDOC ---
Date Seen The patient was seen on 12/08/18. Progress Note SUBJECTIVE: Patient was seen and examined this morning. He currently has no new complaints. His right leg harvest site is currently open to air. There is minimal oozing. This is being followed by Plastic Surgery. There have been no adverse events reported overnight OBJECTIVE PHYSICAL EXAMINATION: VITAL SIGNS: Please see below. GENERAL: awake, alert and oriented. Lying comfortably in bed. Appears in no a cute distress. Conversive HEENT: Atraumatic normocephalic. eyes are nonicteric. Trachea is midline CARDIOVASCULAR: Normal S1, S2. Regular rate and rhythm. No clicks, rubs, or murmurs. RESPIRATORY: Clear vesicular breath sounds bilaterally. No wheezes, rhonchi, or rales. Good respiratory effort. ABDOMINAL: Obese. Soft, nondistended. nontender to palpation in all 4 quadrants. No rebound tenderness or guarding EXTREMITIES: Left stump bandaged. Right leg currently bandaged. Right thigh harvest site is open to air with minimal oozing. NEUROLOGICAL: No focal neurological deficits PSYCHOLOGICAL: Mood and affect appear appropriate LABORATORY DATA, IMAGING STUDIES, MICROBIOLOGY: Please see below. DVT prophylaxis ordered?: YES Xarelto ASSESSMENT AND PLAN: Patient is a 28 year old male who has a history of hypercoaguable state resulting in bilateral acute limb ischemia leading to left BKA and bilateral compartment syndrome with bilateral fasciotomies. The patient was subsequently followed by wound care and sent to Plastic Surgery for skin grafting of his wounds. Patient has been kept on Xarelto. His skin graft is managed by Plastic Surgery. Patient has wound culture on his left stump positive for MRSA. The patient was initially started on Vancomycin however refused IV. He has been started on Zyvox. PROBLEMS: 1. S/P Autologous Skin Graft for chronic ulcers following B/L fasciotomies and Left BKA -Patient is to be continued on strict bed rest. He is being followed by Plastic Surgery. His harvest site is currently open to air and oozing. Plastic surgery is aware. -Will continue his Xarelto. Patient has Oxycodone and Acetaminophen PRN for pain. 2. Left Stump MRSA positive culture -Patients left stump culture was positive for MRSA. This could be due to contamination or colonization. Patient was offered Vancomycin however refused an IV. He has been started on Zyvox. This is currently day 3 of Zyvox. -Infectious disease consult was placed in regards to the patients culture positive MRSA. 3. HTN -Patient is currently controlled on his HCTZ, Amlodipine, Losartan, and Carvedilol. He would likely benefit from a secondary HTN workup as an outpatient 4. Phantom limb pain: Will continue Gabapentin 5. Hypercoagulable State -Patient has had labs performed in [place] [facility]. His workup is currently pending. He will be continued on Xarelto. DISPOSITION: Patient will be hospitalized till the end of this week as his graft sets. Will follow recommendations per Plastic Surgery I saw and evaluated the patient. Discussed with the resident and agree with resident's findings and plan as documented in the resident's note VS, I&O, 24H, Fishbone Vital Signs/I&O Vital Signs Date Time Temp Pulse Resp B/P (MAP) Pulse Ox O2 Delivery O2 Flow Rate FiO2 12/08/18 09:35 142/78 12/08/18 09:35 80 12/08/18 06:00 97.6 18 98 12/04/18 15:20 10 I&O- Last 24 Hours up to 6 AM 12/08/18 06:00 Intake Total 1980 ml Output Total 2625 ml Balance -645 ml Laboratory Data Microbiology Microbiology 12/04/18 Wound Culture - Final, Complete Enterobacter Cloacae Complex Strep Agalactiae Group B 12/04/18 Wound Culture - Final, Complete Enterobacter Cloacae Complex Staph.aureus Methicillin Resis Strep Agalactiae Group B KAMILA WRIGHT DO Dec 08, 2018 11:59 MARISSA HAQUE MD Dec 09, 2018 07:09
[2018-12-08 14:00] VITALS: BP 138/82
[2018-12-08] MEDS: RIVAROXABAN 20 MG TAB (XARELTO) PO SCH (16:28)
--- NOTE | 2018-12-08 17:29 | IPNPDOC ---
Subjective General Date/Time Seen The patient was seen on 12/08/18 at 17:24. Subject Chief Complaint/History The patient is a 38-year-old male admitted with a reason for visit of Thrombocytopenia, Open Wound Right Lower Extremity. S/p I/D and STSG right leg and left stump wounds. Doing well. Pain controlled. Current Medications Current Medications Current Medications Medications (Trade) Dose Ordered Sig/Milla Route PRN Reason Start Time Stop Time Status Last Admin Dose Admin Acetaminophen (Tylenol Tab) 650 mg Q4H PRN PO PAIN OR FEVER 12/04/18 17:30 Amlodipine Besylate (Norvasc) 10 mg DAILY PO 12/05/18 09:00 12/08/18 09:35 Carvedilol (COReg) 25 mg BID PO 12/04/18 21:00 12/08/18 09:34 Docusate Sodium (Colace) 100 mg TID PO 12/06/18 16:00 12/08/18 09:35 Fentanyl Citrate (Sublimaze) 25 mcg Q5MP PRN IV MODERATE PAIN (PS 4-7) 12/04/18 16:00 12/04/18 17:00 DC Gabapentin (Neurontin) 300 mg TID PO 12/04/18 21:00 12/08/18 16:28 Hydrochlorothiazide (Hydrodiuril) 12.5 mg DAILY PO 12/05/18 09:00 12/08/18 09:36 Hydromorphone HCl (Dilaudid) 0.4 mg Q5MP PRN IV MODERATE/SEVERE PAIN (PS 5-10) 12/04/18 16:00 12/04/18 17:00 DC Lactated Ringer's 1,000 ml @ 75 mls/hr [id number] IV 12/04/18 16:00 12/05/18 09:54 DC 12/04/18 18:26 Lactated Ringer's 1,000 ml @ 100 mls/hr Q10H IV 12/04/18 16:00 12/04/18 17:00 DC Lidocaine HCl (LIDOCAINE 1% MDV 20ml) 0.1 ml ONCE PRN SQ DISCOMFORT BEFORE IV START 12/04/18 06:00 12/04/18 15:46 DC Linezolid (Zyvox) 600 mg BID PO 12/06/18 21:00 12/08/18 09:35 Losartan Potassium (Cozaar) 100 mg DAILY PO 12/05/18 09:00 12/08/18 09:35 Nortriptyline HCl (Pamelor) 25 mg QHS PO 12/04/18 21:00 12/06/18 11:11 DC 12/05/18 20:24 Ondansetron HCl (ZOFRAN INJection) 4 mg Q4HP PRN IV NAUSEA OR VOMITING 12/04/18 16:00 12/04/18 17:00 DC Oxycodone HCl (Roxicodone, Oxyir) 5 mg Q6HP PRN PO PAIN 12/04/18 17:30 Oxycodone/ Acetaminophen (Percocet 5mg/ 325mg Tablet) 1 tab ASDIRECTED PRN PO MILD/MODERATE PAIN (PS 1-7) 12/04/18 16:00 12/04/18 17:00 DC Rivaroxaban (Xarelto) 20 mg QPM@1800 PO 12/04/18 18:00 12/08/18 16:28 Vancomycin HCl 1000 mg/IV Miscellaneous Supplies 1 each/ Dextrose 270 ml @ 270 mls/hr Q12H IV 12/06/18 09:30 12/06/18 10:58 DC Allergies Uncoded Allergies: MENS MULTIVITAMIN (Allergy, Intermediate, lip swelling, hands redness, 11/25/18) Objective Physical Examination Examination GENERAL APPEARANCE:Patient seen, laying in bed, awake, alert, and oriented. Comfortable, in no acute distress. LUNGS: Clear to auscultation bilaterally. No wheezing appreciated. EXTREMITIES: Donor site: drying well. Recipient sites dressings intact. No drainage. Vital Signs Vital Signs Date Time Temp Pulse Resp B/P (MAP) Pulse Ox O2 Delivery O2 Flow Rate FiO2 12/08/18 14:00 99.1 95 18 138/82 (100) 96 12/04/18 15:20 10 I&Os I&O- Last 24 Hours up to 6 AM 12/08/18 05:59 Intake Total 1880 ml Output Total 2975 ml Balance -1095 ml Laboratory Data Microbiology Microbiology 12/04/18 Wound Culture - Final, Complete Enterobacter Cloacae Complex Strep Agalactiae Group B 12/04/18 Wound Culture - Final, Complete Enterobacter Cloacae Complex Staph.aureus Methicillin Resis Strep Agalactiae Group B Impression Right left open wound and left stump open wound debridement and STSG coverage. Donor sits it healing well Recipient site dressing to be removed . Continue with bedrest. Plan / VTE VTE Prophylaxis Ordered?: Yes VTE Exclusion Mechanical Proph: Other (On Xarelto) SALONI GARCIA DO Dec 08, 2018 17:29
--- NOTE | 2018-12-08 19:07 | CR ---
DATE OF CONSULTATION: 12/08/2018 Asked to consult by Dr. Puri for evaluation of a wound culture from right fasciotomy site of the right leg and left stump for group B strep, Enterobacter cloacae and methicillin-resistant Staphylococcus aureus (MRSA). HISTORY OF PRESENT ILLNESS: Greyson is a 38-year-old gentleman, who developed acute thrombosis of bilateral popliteal artery in August 2018 when he woke up in the morning, developed coldness of his feet and toes that progressively got worse. He was sent to [facility] where he received arterial stents. Unfortunately, the left leg could not be salvaged and he had a below-knee amputation, compartment syndrome of the right leg requiring fasciotomy. He had slow healing wounds and followed up by Dr. Gonzalez from wound care and referred to Dr. Puri for skin grafting. He stated he never had previous history of methicillin-resistant Staphylococcus aureus (MRSA). He was not on antibiotics. He was at [facility] for 30 days and in a rehabilitation for 10 more days. The patient denied any fever or chills. He had no purulent drainage from the stump or the right leg when Dr. Puri did wound graft. He had no fever or chills. He refused IV antibiotics; and therefore after culture came back with MRSA and Group B strep, he was started on by mouth linezolid. PAST MEDICAL HISTORY:: 1. Acute thrombosis of bilateral lower extremity with limb ischemia and complicated by left below-knee amputation (BKA) and amputation of first and fifth toe of the right leg, 2. Hypertension. 3. Insomnia 4. Phantom pain. 5. Obstructive sleep apnea. PAST SURGICAL HISTORY: Arterial stents of both popliteal arteries. Left below-knee amputation with amputation of right big toe and fifth toe. Fasciotomy of right leg, left stump, right leg with skin graft and right leg skin graft from the upper thigh. Sinus surgery for obstructive sleep apnea. SOCIAL HISTORY: He is a smoker five cigarettes a day, smoking since the age of 16. He denies illicit drug use. 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 He has a 7-year-old child. His ex- left him for his best friend. He is currently . The child is with his parents. FAMILY HISTORY: Significant for hypertension. No clotting diseases. ALLERGIES: MULTIVITAMIN, CODEINE. PHYSICAL EXAMINATION: Healthy-looking gentleman in no acute distress. Temperature is 99.1, pulse 95, respirations 18, blood pressure 138/82, Oxygen saturation 96% on room air. Heart: Normal S1-S2. No murmurs, rubs or gallops. Lungs are clear. No wheezes, rales or rhonchi. Abdomen: Obese, soft, nontender. No hepatosplenomegaly. Extremities: No clubbing, cyanosis or edema. Right leg has a wound dressing with an amputation of the first toe and fifth toe. The toes are curved downwards. He has no range of motion of his three toes on the right foot. Left below-knee amputation with a Coban dressing. Wound was not examined as we could not open those wounds until per Dr. Puri. Right upper thigh graft site with some bloody discharge, healing well. No tenderness. LABORATORY DATA: On 12/05, white count 9.9, hemoglobin 13.5, hematocrit 42.5, platelets 363. Sodium 139, potassium 4.1, chloride 103, bicarbonate 28, BUN 16, creatinine 0.92, glucose 120, calcium 8.7. MEDICATIONS: - linezolid 600 mg by mouth twice a day, currently day #3 - amlodipine 10 mg by mouth daily - hydrochlorothiazide 12.5 mg daily - losartan 100 mg daily - Coreg 25 mg twice a day - gabapentin 300 mg three times a day - Xarelto 20 mg every p.m. - oxycodone 5 mg every 6 hours as needed IMPRESSION: Acute thrombosis of bilateral lower extremity, status post left below-knee amputation and fasciotomy of the right leg. The patient presented for grafting of both sites that were slow to heal and wound culture was positive for methicillin-resistant Staphylococcus aureus (MRSA), group B streptococcus and E. cloacae on the left stump and group B strep and E cloacae on the right leg. According to Dr. Puri, the wound did not look infected. There was good granulation tissue, there was no purulent discharge and all those cultures had few colonies each. There was no heavy growth of those pathogens his white count was normal. The patient is afebrile. The patient was started on by mouth linezolid as he refused to have an IV. Enterobacter cloacae would not be covered with by mouth linezolid. PLAN At this point , it seems that the patient is on antibiotic just to be on the cautious site for coverage of MRSA as there was a slow healing stump, but clinically per Dr. Puri, which I have not seen myself the wound and cannot witnesses to that, that the stump did not show any evidence of infection. This is routine for plastic surgery to do wound cultures before grafting to make sure there is no evidence of infection, but also this will picker/puller colonization of multiple pathogens as it witnessed here. Would continue with linezolid for total of 10 days. Monitor complete blood count (CBC), C-reactive protein (CRP), and sedimentation rate. I will check the wounds with Dr. Puri on when she could remove the dressings . If sedimentation rate, C- reactive protein (CRP) or fever developes, please add Levaquin to cover for Enterobacter cloacae. MTDD
[2018-12-08 19:49] LABS: APPEARANCE, URINE CLEAR (CLEAR); BACTERIA, URINE AUTO NEGATIVE (NEGATIVE); BILIRUBIN, URINE AUTO NEGATIVE (NEGATIVE); BLOOD, URINE BLOOD NEGATIVE (NEGATIVE); COLOR, URINE YELLOW (YELLOW); GLUCOSE, URINE (UA) AUTO NEGATIVE (NEGATIVE); KETONE, URINE AUTO NEGATIVE (NEGATIVE); LEUKOCYTE ESTERASE, URINE AUTO NEGATIVE (NEGATIVE); NITRITE, URINE AUTO NEGATIVE (NEGATIVE); PROTEIN, URINE AUTO NEGATIVE (NEGATIVE); RBC, URINE AUTO 0 /HPF (0-3); SPECIFIC GRAVITY URINE AUTO 1.016 (1.002-1.035); SQUAMOUS EPITHELIAL CELL UR AU 0 /HPF (0-6); UROBILINOGEN, URINE AUTO 0.2 mg/dL (0.0-2.0); WBC, URINE AUTO 0 /HPF (0-3)
[2018-12-08 20:00] VITALS: BP 138/86
[2018-12-09 04:00] VITALS: BP 154/103
[2018-12-09 06:40] VITALS: BP 160/110
[2018-12-09] MEDS: LOSARTAN 50 MG TAB PO SCH (08:55)
[2018-12-09] MEDS: amLODIPine 10 MG TAB PO SCH (08:56)
[2018-12-09] MEDS: CARVedilol 12.5 MG TAB PO SCH ×2 (08:56→20:53)
[2018-12-09] MEDS: DOCUSATE SODIUM 100 MG CAP PO SCH ×3 (08:56→20:53)
[2018-12-09] MEDS: LINEZOLID 600MG TABLET (ZYVOX) PO SCH ×2 (08:56→20:53)
[2018-12-09] MEDS: hydroCHLOROthiazide 12.5 MG CAPSULE PO SCH (08:56)
[2018-12-09] MEDS: GABAPENTIN 300 MG CAP PO SCH ×3 (08:56→20:52)
[2018-12-09 14:00] VITALS: BP 150/90
--- NOTE | 2018-12-09 15:41 | IPNPDOC ---
Subjective General Date/Time Seen The patient was seen on 12/09/18 at 15:37. Subject Chief Complaint/History The patient is a 38-year-old male admitted with a reason for visit of Thrombocytopenia, Open Wound Right Lower Extremity. S/p I/D and STSG right lateral leg and left stump wounds. Doing well today. ID consult appreciated. Current Medications Current Medications Current Medications Medications (Trade) Dose Ordered Sig/Milla Route PRN Reason Start Time Stop Time Status Last Admin Dose Admin Acetaminophen (Tylenol Tab) 650 mg Q4H PRN PO PAIN OR FEVER 12/04/18 17:30 Amlodipine Besylate (Norvasc) 10 mg DAILY PO 12/05/18 09:00 12/09/18 08:56 Carvedilol (COReg) 25 mg BID PO 12/04/18 21:00 12/09/18 08:56 Docusate Sodium (Colace) 100 mg TID PO 12/06/18 16:00 12/09/18 08:56 Fentanyl Citrate (Sublimaze) 25 mcg Q5MP PRN IV MODERATE PAIN (PS 4-7) 12/04/18 16:00 12/04/18 17:00 DC Gabapentin (Neurontin) 300 mg TID PO 12/04/18 21:00 12/09/18 08:56 Hydrochlorothiazide (Hydrodiuril) 12.5 mg DAILY PO 12/05/18 09:00 12/09/18 08:56 Hydromorphone HCl (Dilaudid) 0.4 mg Q5MP PRN IV MODERATE/SEVERE PAIN (PS 5-10) 12/04/18 16:00 12/04/18 17:00 DC Lactated Ringer's 1,000 ml @ 75 mls/hr [id number] IV 12/04/18 16:00 12/05/18 09:54 DC 12/04/18 18:26 Lactated Ringer's 1,000 ml @ 100 mls/hr Q10H IV 12/04/18 16:00 12/04/18 17:00 DC Lidocaine HCl (LIDOCAINE 1% MDV 20ml) 0.1 ml ONCE PRN SQ DISCOMFORT BEFORE IV START 12/04/18 06:00 12/04/18 15:46 DC Linezolid (Zyvox) 600 mg BID PO 12/06/18 21:00 12/09/18 08:56 Losartan Potassium (Cozaar) 100 mg DAILY PO 12/05/18 09:00 12/09/18 08:55 Nortriptyline HCl (Pamelor) 25 mg QHS PO 12/04/18 21:00 12/06/18 11:11 DC 12/05/18 20:24 Ondansetron HCl (ZOFRAN INJection) 4 mg Q4HP PRN IV NAUSEA OR VOMITING 12/04/18 16:00 12/04/18 17:00 DC Oxycodone HCl (Roxicodone, Oxyir) 5 mg Q6HP PRN PO PAIN 12/04/18 17:30 Oxycodone/ Acetaminophen (Percocet 5mg/ 325mg Tablet) 1 tab ASDIRECTED PRN PO MILD/MODERATE PAIN (PS 1-7) 12/04/18 16:00 12/04/18 17:00 DC Rivaroxaban (Xarelto) 20 mg QPM@1800 PO 12/04/18 18:00 12/08/18 16:28 Vancomycin HCl 1000 mg/IV Miscellaneous Supplies 1 each/ Dextrose 270 ml @ 270 mls/hr Q12H IV 12/06/18 09:30 12/06/18 10:58 DC Allergies Uncoded Allergies: MENS MULTIVITAMIN (Allergy, Intermediate, lip swelling, hands redness, 11/25/18) Objective Physical Examination Examination GENERAL APPEARANCE:Patient seen, laying in bed, awake, alert, and oriented. Comfortable, in no acute distress. SKIN: Warm and moist. LUNGS: [Clear to auscultation bilaterally. No wheezing appreciated]. EXTREMITIES: Both reciepient sites with dressing in place. No drainage. Donor site is drying well. Vital Signs Vital Signs Date Time Temp Pulse Resp B/P (MAP) Pulse Ox O2 Delivery O2 Flow Rate FiO2 12/09/18 14:00 98.9 75 18 150/90 (110) 96 12/04/18 15:20 10 I&Os I&O- Last 24 Hours up to 6 AM 12/09/18 06:00 Intake Total 1560 ml Output Total 1850 ml Balance -290 ml Laboratory Data Labs 24H Laboratory Tests 2 12/08/18 19:36: Urine Appearance CLEAR, Urine Color YELLOW, Urine pH 7.0, Urine Specific [place] 1.016, Urine Protein NEGATIVE, Urine Glucose (UA) NEGATIVE, Urine Ketones NEGATIVE, Urine Urobilinogen 0.2, Urine Bilirubin NEGATIVE, Urine Leukocyte Esterase NEGATIVE, Urine Blood NEGATIVE, Urine Nitrite NEGATIVE, Urine WBC (Auto) 0, Urine RBC (Auto) 0, Urine Hyaline Casts (Auto) 0, Urine Bacteria (Auto) NEGATIVE, Urine Squamous Epithelial Cells 0, Urine Sperm (Auto) Microbiology Microbiology 12/04/18 Wound Culture - Final, Complete Enterobacter Cloacae Complex Strep Agalactiae Group B 12/04/18 Wound Culture - Final, Complete Enterobacter Cloacae Complex Staph.aureus Methicillin Resis Strep Agalactiae Group B Impression S/p STSG right and lower extremity wounds. Donor site is healing Recipient site will remove . Start with d/c planning tomorrow. Will need home PT and daily activity assistance. Plan / VTE VTE Prophylaxis Ordered?: Yes VTE Exclusion Mechanical Proph: Other (On Xarelto) SALONI GARCIA DO Dec 09, 2018 15:41
[2018-12-09] MEDS: RIVAROXABAN 20 MG TAB (XARELTO) PO SCH (16:49)
--- NOTE | 2018-12-09 17:06 | IPNPDOC ---
Date Seen The patient was seen on 12/09/18. Progress Note SUBJECTIVE: Patient was seen and examined this morning. He currently has no new complaints. He was evaluated by infectious disease due to his MRSA positive left stump culture. Infectious disease had ordered labs on the patient, however, the patient is once again refused any blood draws. He denies any fevers, chills, nausea, vomiting. He is planned to get his dressings changed on . There have been no adverse events reported overnight. OBJECTIVE PHYSICAL EXAMINATION: VITAL SIGNS: Please see below. GENERAL: Awake, alert and oriented, appears in no acute distress, lying comfortably in bed HEENT: Atraumatic normocephalic. Eyes nonicteric. Trachea is midline CARDIOVASCULAR: Normal S1, S2, regular rate and rhythm. No clicks, rubs or murmurs. RESPIRATORY:. Clear vesicular breath sounds bilaterally with good respiratory effort. No wheezes, rhonchi or rales. ABDOMINAL: Obese, soft, nondistended, nontender to palpation in all 4 quadrants. No rebound tenderness or guarding EXTREMITIES: Left stump currently bandaged, right foot currently bandaged as well. His right thigh harvest site is be open to air with minimal oozing NEUROLOGICAL: No neurological deficits PSYCHOLOGICAL: Mood and affect appear appropriate LABORATORY DATA, IMAGING STUDIES, MICROBIOLOGY: Please see below. DVT prophylaxis ordered?: Xarelto ASSESSMENT AND PLAN: Patient is a 28-year-old male with a history of hypercoagulable state resulting in bilateral acute limb ischemia leading to left BKA and bilateral compartment syndrome with bilateral fasciotomies. The patient was subsequently followed by wound care and sent to Plastic Surgery for skin grafting of his wounds. Patient has been kept on Xarelto. His skin graft is managed by Plastic Surgery. Patient has wound culture on his left stump positive for MRSA. The patient was initially started on Vancomycin however refused IV. He has been started on Zyvox. Patient is currently seen by infectious disease for management of his MRSA positive stump culture. 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 He continues to be followed plastic surgery. His harvest site is currently open to air and oozing. Patient is continued on Xarelto. His pain medication is oxycodone and acetaminophen and is well-controlled. -Plastic surgery to change patient's dressings on . 2. Left stump MRSA positive culture: -Patient has a less than culture positive MRSA likely due to contamination or colonization. This is a culture before. Patient skin graft was placed. No signs of cellulitis at the time of the culture. He is currently on Zyvox. Infectious disease consult was placed and he has been seen by infectious disease. He has refused any blood draws. 3. Hypertension -Patient is currently controlled on chlorothiazide, amlodipine, losartan and carvedilol. Patient would benefit from a secondary hypertension workup as an outpatient 4. Phantom limb pain. -Continue gabapentin. 5. Hypercoagulable state. -Patient has had labs performed both [place] and [facility] the regular was currently pending. Records request has been made C patient's workup. He is continued on Xarelto patient does smoke cigarettes and he has been counseled on adverse effects of smoking and possible contribution to hypercoagulable state I saw and evaluated the patient. I agree with the findings and plan of care as documented in the above note Patient externally noncompliant noncompliant with CPAP that interested in tobacco cessation refuses all lab and blood draws he has been nonadherent and noncompliant with recommendations for medical team since his hospitalization and throughout my time covering him. 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 Uncontrolled hypertension secondary hypertension possibly related to untreated sleep apnea due to noncompliance. Certainly an element of anxiety as well. We'll continue to titrate his medication an effort to better optimize him as far as she will allow VS, I&O, 24H, Fishbone Vital Signs/I&O Vital Signs Date Time Temp Pulse Resp B/P (MAP) Pulse Ox O2 Delivery O2 Flow Rate FiO2 12/09/18 14:00 98.9 75 18 150/90 (110) 96 12/04/18 15:20 10 I&O- Last 24 Hours up to 6 AM 12/09/18 05:59 Intake Total 1860 ml Output Total 2250 ml Balance -390 ml Laboratory Data 24H LABS Laboratory Tests 2 12/08/18 19:36: Urine Appearance CLEAR, Urine Color YELLOW, Urine pH 7.0, Urine Specific [place] 1.016, Urine Protein NEGATIVE, Urine Glucose (UA) NEGATIVE, Urine Ketones NEGATIVE, Urine Urobilinogen 0.2, Urine Bilirubin NEGATIVE, Urine Leukocyte Esterase NEGATIVE, Urine Blood NEGATIVE, Urine Nitrite NEGATIVE, Urine WBC (Auto) 0, Urine RBC (Auto) 0, Urine Hyaline Casts (Auto) 0, Urine Bacteria (Auto) NEGATIVE, Urine Squamous Epithelial Cells 0, Urine Sperm (Auto) Microbiology Microbiology 12/04/18 Wound Culture - Final, Complete Enterobacter Cloacae Complex Strep Agalactiae Group B 12/04/18 Wound Culture - Final, Complete Enterobacter Cloacae Complex Staph.aureus Methicillin Resis Strep Agalactiae Group B KAMILA WRIGHT DO Dec 09, 2018 17:06 SUSI BISHOP MD Dec 11, 2018 10:49
--- NOTE | 2018-12-09 20:09 | IPN ---
DATE: 12/09/2018 Mr. Lebron refused to have his blood work done yesterday. He is currently day number four of by mouth (p.o.) linezolid for Methicillin-resistant Staphylococcus aureus (MRSA) and Group B strep colonization of the right lower extremity and the left leg stump. The patient has no nausea, vomiting or diarrhea. When discussed with him the need to follow up on a CBC due to Zyvox toxicity including anemia and thrombocytopenia as well as followup on infection markers, the patient refused to have blood work done. I have called Dr. Puri who is the primary attending on the case and discussed with her the need to have follow up labs on her patient and she will discuss that with him. Also discussed the fact that he is also colonized with Enterobacter cloacae, although very few organisms have been cultured. If there is any evidence of infection of the right lower extremity or the left stump by mouth Levaquin could be added. She will be doing his dressing changes on and depending on inflammation markers, CBC and wound status will decide whether to add by mouth levofloxacin, but she is leaning towards the fact that it is only colonization and does not need treatment. Since I have not seen the wound I cannot place a recommendation regarding use of quinolone as well. Highly recommended that the patient get his labs done tomorrow.
[2018-12-09 20:29] VITALS: BP 179/100
[2018-12-10 06:24] VITALS: BP 179/104
[2018-12-10] MEDS: GABAPENTIN 300 MG CAP PO SCH ×3 (08:37→20:32)
[2018-12-10] MEDS: DOCUSATE SODIUM 100 MG CAP PO SCH ×3 (08:37→20:32)
[2018-12-10] MEDS: hydroCHLOROthiazide 12.5 MG CAPSULE PO SCH (08:38)
[2018-12-10] MEDS: amLODIPine 10 MG TAB PO SCH (08:38)
[2018-12-10] MEDS: LOSARTAN 50 MG TAB PO SCH (08:38)
[2018-12-10] MEDS: LINEZOLID 600MG TABLET (ZYVOX) PO SCH ×2 (08:38→20:32)
[2018-12-10] MEDS: CARVedilol 12.5 MG TAB PO SCH ×2 (08:39→20:32)
--- NOTE | 2018-12-10 09:42 | IPNPDOC ---
Subjective General Date/Time Seen The patient was seen on 12/10/18 at 08:40. Subject Chief Complaint/History The patient is a 38-year-old male admitted with a reason for visit of Thrombocytopenia, Open Wound Right Lower Extremity. S/p STSG right and left leg open wound. No new complains. Current Medications Current Medications Current Medications Medications (Trade) Dose Ordered Sig/Milla Route PRN Reason Start Time Stop Time Status Last Admin Dose Admin Acetaminophen (Tylenol Tab) 650 mg Q4H PRN PO PAIN OR FEVER 12/04/18 17:30 Amlodipine Besylate (Norvasc) 10 mg DAILY PO 12/05/18 09:00 12/10/18 08:38 Carvedilol (COReg) 25 mg BID PO 12/04/18 21:00 12/10/18 08:39 Docusate Sodium (Colace) 100 mg TID PO 12/06/18 16:00 12/09/18 16:48 Fentanyl Citrate (Sublimaze) 25 mcg Q5MP PRN IV MODERATE PAIN (PS 4-7) 12/04/18 16:00 12/04/18 17:00 DC Gabapentin (Neurontin) 300 mg TID PO 12/04/18 21:00 12/10/18 08:37 Hydrochlorothiazide (Hydrodiuril) 12.5 mg DAILY PO 12/05/18 09:00 12/10/18 08:38 Hydromorphone HCl (Dilaudid) 0.4 mg Q5MP PRN IV MODERATE/SEVERE PAIN (PS 5-10) 12/04/18 16:00 12/04/18 17:00 DC Lactated Ringer's 1,000 ml @ 75 mls/hr [id number] IV 12/04/18 16:00 12/05/18 09:54 DC 12/04/18 18:26 Lactated Ringer's 1,000 ml @ 100 mls/hr Q10H IV 12/04/18 16:00 12/04/18 17:00 DC Lidocaine HCl (LIDOCAINE 1% MDV 20ml) 0.1 ml ONCE PRN SQ DISCOMFORT BEFORE IV START 12/04/18 06:00 12/04/18 15:46 DC Linezolid (Zyvox) 600 mg BID PO 12/06/18 21:00 12/10/18 08:38 Losartan Potassium (Cozaar) 100 mg DAILY PO 12/05/18 09:00 12/10/18 08:38 Nortriptyline HCl (Pamelor) 25 mg QHS PO 12/04/18 21:00 12/06/18 11:11 DC 12/05/18 20:24 Ondansetron HCl (ZOFRAN INJection) 4 mg Q4HP PRN IV NAUSEA OR VOMITING 12/04/18 16:00 12/04/18 17:00 DC Oxycodone HCl (Roxicodone, Oxyir) 5 mg Q6HP PRN PO PAIN 12/04/18 17:30 Oxycodone/ Acetaminophen (Percocet 5mg/ 325mg Tablet) 1 tab ASDIRECTED PRN PO MILD/MODERATE PAIN (PS 1-7) 12/04/18 16:00 12/04/18 17:00 DC Rivaroxaban (Xarelto) 20 mg QPM@1800 PO 12/04/18 18:00 12/09/18 16:49 Vancomycin HCl 1000 mg/IV Miscellaneous Supplies 1 each/ Dextrose 270 ml @ 270 mls/hr Q12H IV 12/06/18 09:30 12/06/18 10:58 DC Allergies Uncoded Allergies: MENS MULTIVITAMIN (Allergy, Intermediate, lip swelling, hands redness, 11/25/18) Objective Physical Examination Examination GENERAL APPEARANCE:Patient seen, laying in bed, awake, alert, and oriented. Comfortable, in no acute distress. SKIN: Warm and moist. Donor site healing well. Recipient site with dressings in place. LUNGS: Clear to auscultation bilaterally. No wheezing appreciated. HEART: No chest wall abnormalities. Regular rate and rhythm with no murmurs appreciated. Vital Signs Vital Signs Date Time Temp Pulse Resp B/P (MAP) Pulse Ox O2 Delivery O2 Flow Rate FiO2 12/10/18 08:39 71 179/104 12/10/18 06:24 97.7 19 95 12/04/18 15:20 10 I&Os I&O- Last 24 Hours up to 6 AM 12/10/18 05:59 Intake Total 1900 ml Output Total 2400 ml Balance -500 ml Laboratory Data Microbiology Microbiology 12/04/18 Wound Culture - Final, Complete Enterobacter Cloacae Complex Strep Agalactiae Group B 12/04/18 Wound Culture - Final, Complete Enterobacter Cloacae Complex Staph.aureus Methicillin Resis Strep Agalactiae Group B Impression S/p STSG right and left LE. Hypertension - managed by medical team. Healing well Plan to remove dressings tomorrow. Draw labs today. D/c planning for tomorrow. Findings discussed with medical team. Plan / VTE VTE Prophylaxis Ordered?: Yes VTE Exclusion Mechanical Proph: Other (On Xarelto) SALONI GARCIA DO Dec 10, 2018 09:42
--- NOTE | 2018-12-10 11:59 | IPNPDOC ---
Date Seen The patient was seen on 12/10/18. Progress Note SUBJECTIVE: Patient seen, examined this morning. He currently has no new complaints. Plan is for the patient to have his dressings changed from plastic surgery tomorrow. Patient does have anxiety. He is continually refusing blood work. However, today he states that he will have this completed. He does appear anxious as he states he is afraid of needles. Patient's records from [facility] were obtained yesterday. They have been reviewed. The patient had originally received a hypercoagulable workup. However, his labs were canceled due to the insurance coverage issue. Patient currently denies any complaints of short of breath, chest pain, headache, nausea, vomiting or diarrhea. OBJECTIVE PHYSICAL EXAMINATION: VITAL SIGNS: Please see below. GENERAL: Awake, alert, oriented. No acute distress. Lying in bed, appears anxious HEENT: Atraumatic Normocephalic. Eyes nonicteric. Trachea is midline CARDIOVASCULAR: Normal S1, S2, regular rate and rhythm, no clicks, rubs or murmurs. RESPIRATORY: Clear vesicular breath sounds bilaterally. Good respiratory effort. No wheezes, rhonchi or rales. ABDOMINAL:. Obese, soft, nondistended, nontender to palpation in all 4 quadrants. No rebound tenderness or guarding. Positive bowel sounds throughout EXTREMITIES: Left stump continues to be bandaged. his right foot is currently bandaged as well. Right thigh harvest site remains open to air. Appears to be drying. NEUROLOGICAL: No focal neurological deficits PSYCHOLOGICAL:. Mood Affect appear appropriate LABORATORY DATA, IMAGING STUDIES, MICROBIOLOGY: Please see below. DVT prophylaxis ordered?: Xarelto ASSESSMENT AND PLAN: Patient is a 28-year-old male with a history of hypercoagulable state resulting in bilateral acute limb ischemia leading to left BKA and bilateral compartment syndrome with bilateral fasciotomies. The patient was followed by wound care and sent surgery for skin grafting of his wounds. Jarocho allred continues to be kept on Xarelto. His skin grafts are currently managed by plastic surgery. Patient has had wound culture of his left stump positive for MRSA and was started on Zyvox. Patient is currently followed by infectious disease for management of his MRSA positive culture. Patient's records from [facility] were obtained for further evaluation of patient's etiology of hypercoagulability. It appears he had lab work performed at [facility] however, the results were canceled due to insurance issue. Patient has agreed to blood work today and has agreed to have hypercoagulable workup. PROBLEMS: 1., Status post autologous skin graft from chronic nonhealing wounds following fasciotomies and left BKA -Patient continued on strict bedrest per plastic surgery. Plastic surgery plans on changing his dressings tomorrow. The patient continued on Xarelto pain medication including oxycodone, acetaminophen. Patient states pain is currently well controlled -Given patients recent loss of limb and acute medical problems he would likely benefit from outpatient psychiatric evaluation 2.. Left stump MRSA positive culture: -Patient is currently taking on Zyvox. He hasn't seen by infectious disease. He has agreed to blood draw this morning. 3., Hypertension -Patient has a long-standing history of hypertension. He is currently on 4 antihypertensive medicines. He has resistant hypertension. Etiology of this is likely due to secondary causes. Patient has multiple risk factors including obesity, history obstructive sleep apnea without use the CPAP, and tobacco abuse. . He currently has a hypercoagulability disorder of unknown etiology as well, which may also contribute to hypertension. Additionally, the patient appears more hypertensive today, likely secondary to his anxiety as he is afraid of needles and is getting blood drawn today. -Patient's hydrochlorothiazide has been increased 25 mg. -I have spoken at length with the patient today regarding his hypertension and necessity for workup with his primary care physician when he leaves. He states he has had surgery in the past for sleep apnea. He currently does not wear a CPAP machine. I informed the patient that we cannot evaluate for sleep apnea while he is hospitalized. However, he would benefit from an outpatient evaluation with his primary care physician. Additionally, the patient is obese and this certainly plays a role in his hypertension. Lastly, the patient also is a smoker. I've informed him that smoking contributes to hypertension as well as worsens his hypercoagulable disorder. He has voiced that he currently has no intention of quitting smoking. -Patient will be referred to a Hypertensive Specialist. He will likely need ambulatory blood pressure monitoring. 4. Hypercoagulable state -Patient's labs performed at [facility] were obtained. They've been reviewed. The patient did receive a hypercoaguable workup. However, the results of that workup were canceled due to "insurance coverage issues". Patient has agreed to a lab draw today and I have added on a basic hypercoagulable workup to assess for common causes. He'll most certainly need to follow up with a presales senior specialist outpatient for further evaluation of his hypercoagulable state. -Patient is once again counseled on smoking cessation. He currently indicates that he does not want to quit. He is informed that smoking could contribute to his hypercoagulable state. -Based on the patient's age of less than 45, current tobacco use, and history of distal extremity ischemia a diagnoses of thromboangiitis obliterans is possible. Once again, he would benefit from cessation of smoking. 5. Phantom limb Pain -Continue gabapentin DISPOSITION: Patient is planned to be discharged tomorrow. The patient is intended for home PT. However patient will need PT evaluation before discharge I saw and evaluated the patient. I agree with the findings and plan of care as documented in the above note Patient extremely noncompliant, noncompliant with CPAP, not interested in tobacc o cessation refuses all lab and blood draws he has been nonadherent and noncompliant with recommendations for medical team since his hospitalization and throughout my time covering him. 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 Uncontrolled hypertension, secondary hypertension, possibly related to untreated sleep apnea due to noncompliance. Certainly an element of anxiety as well. We'll continue to titrate his medication an effort to better optimize him as far as he will allow VS, I&O, 24H, Fishbone Vital Signs/I&O Vital Signs Date Time Temp Pulse Resp B/P (MAP) Pulse Ox O2 Delivery O2 Flow Rate FiO2 12/10/18 08:39 71 179/104 12/10/18 06:24 97.7 19 95 12/04/18 15:20 10 I&O- Last 24 Hours up to 6 AM 12/10/18 06:00 Intake Total 1900 ml Output Total 2400 ml Balance -500 ml Laboratory Data Microbiology Microbiology 12/04/18 Wound Culture - Final, Complete Enterobacter Cloacae Complex Strep Agalactiae Group B 12/04/18 Wound Culture - Final, Complete Enterobacter Cloacae Complex Staph.aureus Methicillin Resis Strep Agalactiae Group B KAMILA WRIGHT DO Dec 10, 2018 11:59 USSI BISHOP MD Dec 11, 2018 10:54
[2018-12-10 14:51] VITALS: BP 148/91
[2018-12-10] MEDS ORDERED: LORazepam 1 MG TAB PO ONE (15:00)
[2018-12-10 15:56] LABS: HEMATOCRIT 43.2 % (42.0-52.0); HEMOGLOBIN 14.1 g/dl (13.5-17.5); MEAN CORPUSCULAR HEMOGLOBIN 27.3 pg (27.0-33.0); MEAN CORPUSCULAR HGB CONC 32.6 g/dl (32.0-36.5); MEAN CORPUSCULAR VOLUME 83.6 fl (80.0-96.0); PLATELET COUNT, AUTOMATED 389 10^3/uL (150-450); RED BLOOD COUNT 5.17 10^6/uL (4.30-6.10); WHITE BLOOD COUNT 7.8 10^3/uL (4.0-10.0)
[2018-12-10 16:25] LABS: ALBUMIN 3.6 GM/DL (3.2-5.2); ALT/SGPT 66 U/L (12-78); BILIRUBIN,TOTAL 0.2 MG/DL (0.2-1.0); BLOOD UREA NITROGEN 18 MG/DL (7-18); C REACTIVE PROTEIN QUANTITATIV 0.93 MG/DL (0.00-0.30); CALCIUM LEVEL 8.8 MG/DL (8.5-10.1); CARBON DIOXIDE LEVEL 29 MEQ/L (21-32); CHLORIDE LEVEL 102 MEQ/L (98-107); GLOMERULAR FILTRATION RATE > 60.0 (>60); GLUCOSE, FASTING 127 MG/DL (70-100); LDH LACTATE DEHYDROGENASE 159 U/L (87-241); POTASSIUM SERUM 4.1 MEQ/L (3.5-5.1); SODIUM LEVEL 138 MEQ/L (136-145); TOTAL PROTEIN 6.9 GM/DL (6.4-8.2)
[2018-12-10] MEDS: RIVAROXABAN 20 MG TAB (XARELTO) PO SCH (17:08)
[2018-12-10 19:01] LABS: ERYTHROCYTE SEDIMENTATION RATE 8 mm/hr (0-15)
[2018-12-10 20:34] VITALS: BP 182/92
[2018-12-11 06:00] VITALS: BP 150/110
[2018-12-11 06:36] VITALS: BP 150/110
[2018-12-11] MEDS: amLODIPine 10 MG TAB PO SCH (06:36)
[2018-12-11] MEDS: CARVedilol 12.5 MG TAB PO SCH (06:36)
[2018-12-11] MEDS: LOSARTAN 50 MG TAB PO SCH (06:36)
[2018-12-11 07:16] VITALS: BP 170/112
[2018-12-11 08:50] VITALS: BP 162/98
[2018-12-11] MEDS: LINEZOLID 600MG TABLET (ZYVOX) PO SCH (08:54)
[2018-12-11] MEDS: GABAPENTIN 300 MG CAP PO SCH (08:54)
[2018-12-11] MEDS: DOCUSATE SODIUM 100 MG CAP PO SCH (08:54)
[2018-12-11] MEDS ORDERED: hydroCHLOROthiazide 25 MG TAB PO SCH (09:00)
--- NOTE | 2018-12-11 09:15 | IPNPDOC ---
Subjective General Date/Time Seen The patient was seen on 12/11/18 at 08:09. Subject Chief Complaint/History The patient is a 38-year-old male admitted with a reason for visit of Thrombocytopenia, Open Wound Right Lower Extremity. S/p STSG right lateral leg and left stump. Doing well. No complains. Current Medications Current Medications Current Medications Medications (Trade) Dose Ordered Sig/Milla Route PRN Reason Start Time Stop Time Status Last Admin Dose Admin Acetaminophen (Tylenol Tab) 650 mg Q4H PRN PO PAIN OR FEVER 12/04/18 17:30 Amlodipine Besylate (Norvasc) 10 mg DAILY PO 12/05/18 09:00 12/11/18 06:36 Carvedilol (COReg) 25 mg BID PO 12/04/18 21:00 12/11/18 06:36 Docusate Sodium (Colace) 100 mg TID PO 12/06/18 16:00 12/10/18 20:32 Fentanyl Citrate (Sublimaze) 25 mcg Q5MP PRN IV MODERATE PAIN (PS 4-7) 12/04/18 16:00 12/04/18 17:00 DC Gabapentin (Neurontin) 300 mg TID PO 12/04/18 21:00 12/11/18 08:54 Hydrochlorothiazide (Hydrodiuril) 12.5 mg DAILY PO 12/05/18 09:00 12/10/18 10:08 DC 12/10/18 08:38 Hydrochlorothiazide (Hydrodiuril) 25 mg DAILY PO 12/11/18 09:00 12/11/18 07:20 Hydromorphone HCl (Dilaudid) 0.4 mg Q5MP PRN IV MODERATE/SEVERE PAIN (PS 5-10) 12/04/18 16:00 12/04/18 17:00 DC Lactated Ringer's 1,000 ml @ 75 mls/hr [id number] IV 12/04/18 16:00 12/05/18 09:54 DC 12/04/18 18:26 Lactated Ringer's 1,000 ml @ 100 mls/hr Q10H IV 12/04/18 16:00 12/04/18 17:00 DC Lidocaine HCl (LIDOCAINE 1% MDV 20ml) 0.1 ml ONCE PRN SQ DISCOMFORT BEFORE IV START 12/04/18 06:00 12/04/18 15:46 DC Linezolid (Zyvox) 600 mg BID PO 12/06/18 21:00 12/11/18 08:54 Losartan Potassium (Cozaar) 100 mg DAILY PO 12/05/18 09:00 12/11/18 06:36 Nortriptyline HCl (Pamelor) 25 mg QHS PO 12/04/18 21:00 12/06/18 11:11 DC 12/05/18 20:24 Ondansetron HCl (ZOFRAN INJection) 4 mg Q4HP PRN IV NAUSEA OR VOMITING 12/04/18 16:00 12/04/18 17:00 DC Oxycodone HCl (Roxicodone, Oxyir) 5 mg Q6HP PRN PO PAIN 12/04/18 17:30 Oxycodone/ Acetaminophen (Percocet 5mg/ 325mg Tablet) 1 tab ASDIRECTED PRN PO MILD/MODERATE PAIN (PS 1-7) 12/04/18 16:00 12/04/18 17:00 DC Rivaroxaban (Xarelto) 20 mg QPM@1800 PO 12/04/18 18:00 12/10/18 17:08 Vancomycin HCl 1000 mg/IV Miscellaneous Supplies 1 each/ Dextrose 270 ml @ 270 mls/hr Q12H IV 12/06/18 09:30 12/06/18 10:58 DC Allergies Coded Allergies: ferrous fumarate (Unverified Allergy, Intermediate, MENS MULTIVIT CAUSED LIP SWELLING, RED HANDS, 12/10/18) ferrous gluconate (Unverified Allergy, Intermediate, MENS MULTIVIT CAUSED LIP SWELLING, RED HANDS, 12/10/18) folic acid (Unverified Allergy, Intermediate, MENS MULTIVIT CAUSED LIP SWELLING, RED HANDS, 12/10/18) lutein (Unverified Allergy, Intermediate, MENS MULTIVIT CAUSED LIP SWELLING, RED HANDS, 12/10/18) lycopene (Unverified Allergy, Intermediate, MENS MULTIVIT CAUSED LIP SWELLING, RED HANDS, 12/10/18) multivit with calcium, iron, and other minerals (Unverified Allergy, Intermediate, MENS MULTIVIT CAUSED LIP SWELLING, RED HANDS, 12/10/18) multivitamin (Unverified Allergy, Intermediate, MENS MULTIVIT CAUSED LIP SWELLING, RED HANDS, 12/10/18) multivitamin with iron,other minerals (Unverified Allergy, Intermediate, MENS MULTIVIT CAUSED LIP SWELLING, RED HANDS, 12/10/18) multivitamin with minerals (Unverified Allergy, Intermediate, MENS MULTIVIT CAUSED LIP SWELLING, RED HANDS, 12/10/18) Objective Physical Examination Examination GENERAL APPEARANCE:Patient seen, laying in bed, awake, alert, and oriented. Comfortable, in no acute distress. SKIN: Warm and moist. LUNGS: Clear to auscultation bilaterally. No wheezing appreciated. HEART: No chest wall abnormalities. Regular rate and rhythm with no murmurs appreciated. EXTREMITIES: Right lateral leg graft take 100%, Left stump graft take 70%, 30% clean granulating tissue. Vital Signs Vital Signs Date Time Temp Pulse Resp B/P (MAP) Pulse Ox O2 Delivery O2 Flow Rate FiO2 12/11/18 08:50 162/98 (119) 12/11/18 07:16 79 12/11/18 06:00 97.9 18 94 I&Os I&O- Last 24 Hours up to 6 AM 12/11/18 06:00 Intake Total 2280 ml Output Total 2100 ml Balance 180 ml Laboratory Data Labs 24H Laboratory Tests 2 12/10/18 15:43: Nucleated Red Blood Cells % (auto) 0.0, Erythrocyte Sedimentation Rate 8, Anion Gap 7L, Glomerular Filtration Rate > 60.0, Blood Urea Nitrogen 18, Creatinine 1.10, Sodium Level 138, Potassium Level 4.1, Chloride Level 102, Carbon Dioxide Level 29, Calcium Level 8.8, Aspartate Amino Transf (AST/SGOT) 23, Alanine Aminotransferase (ALT/SGPT) 66, Lactate Dehydrogenase 159, Alkaline Phosphatase 103, Total Bilirubin 0.2, Total Protein 6.9, Albumin 3.6, C-Reactive Protein, Quantitative 0.93H, Albumin/Globulin Ratio 1.09 CBC/BMP Laboratory Tests 12/10/18 15:43 Red Blood Count 5.17, Mean Corpuscular Volume 83.6, Mean Corpuscular Hemoglobin 27.3, Mean Corpuscular Hemoglobin Concent 32.6, Red Cell Distribution Width 15.3 H, Calcium Level 8.8, Aspartate Amino Transf (AST/SGOT) 23, Alanine Aminotransferase (ALT/SGPT) 66, Lactate Dehydrogenase 159, Alkaline Phosphatase 103, Total Bilirubin 0.2, Total Protein 6.9, Albumin 3.6 Microbiology Microbiology 12/04/18 Wound Culture - Final, Complete Enterobacter Cloacae Complex Strep Agalactiae Group B 12/04/18 Wound Culture - Final, Complete Enterobacter Cloacae Complex Staph.aureus Methicillin Resis Strep Agalactiae Group B Impression S/p STSG to right and left extremity. Graft taken. Dressing changed today. Melissa will be removed in office. Donor site healing appropriately. Do not remove dressing. Stable for discharge. F/u with Plastic surgery 12/15/18 Plan / VTE VTE Prophylaxis Ordered?: Yes VTE Exclusion Mechanical Proph: Other (On Xarelto) SALONI GARCIA DO Dec 11, 2018 09:15
[2018-12-11] MEDS ORDERED: HYDR25TAB PO (09:33)
--- NOTE | 2018-12-11 14:57 | DS.PDOC ---
Discharge Summary General Date of Admission Dec 05, 2018 at 10:45 Date of Discharge 12/11/18 Attending Physician: SUSI BISHOP MD Specialist/Consultants Involve: SALONI GARCIA DO Specialist/Consultants Involve Dr. Amber Ross MD Infectious Diseases Discharge Summary PROCEDURES PERFORMED DURING STAY: None. ADMITTING DIAGNOSES: 1. Autologous skin graft for chronic nonhealing wounds DISCHARGE DIAGNOSES: 1. Status post autologous skin graft of right leg and left stump with right thigh harvest site 2. Resistant hypertension 3. Hypercoagulable state COMPLICATIONS/CHIEF COMPLAINT: Thrombocytopenia, Open Wound Right Lower Extremi ty. 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 Patient had originally presented to [facility] with bilateral leg numbness. Patient was found to have no pulses detected. At that time he was subsequently found to have bilateral popliteal thrombosis which required immediate revascularization. 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 The patient also lost 3 digits of his right foot. Unfortunately, the patient subsequently developed compartment syndrome requiring bilateral fasciotomies. At discharge from [facility] the patient was following with Dr. Gonzalez of wound care. He was referred to plastic surgery for possible skin graft of his left stump and right leg wounds. At [facility] the patient received autologous skin graft of his left leg stump and right leg with a right thigh harvest site. The patient was placed on strict bedrest per plastic surgery recommendations. The patient's anticoagulation was continued due to his hypercoagulable state, of unknown etiology. After the patient's skin osiris, culture of his left stump came back positive for MRSA. The patient's wounds were bandaged and unable to be assessed. Patient was attempted to be started on vancomycin, however, refused IV access. The patient was started on Zyvox. Infectious disease was consulted as patient's culture was felt to be a contaminate versus a colonization. Throughout the patient's hospital stay he remained in bed rest. He did have hypertension, which is a chronic issue. Patient's blood pressure medications were optimized. However, he still remained hypertensive. Patient was felt to have resistant hypertension likely to due to secondary causes. Patient did state that he has a history of obstructive sleep apnea, however, states he had received surgery in the past for this. Additionally, the patient is a smoker and obese. Patient had been counseled extensively on the benefit of being evaluated outpatient for his hypertension including overnight pulse oximetry, as well as cessation of smoking and weight loss. The patient had refused smoking cessation. Regarding the patient's hypercoagulable state, records were obtained from [facility]. It appears a workup was initiated, however not all of the labs were completed. Patient did have blood work for antiphospholipid syndrome, which was negative. Blood work for factor V Leiden deficiency, antithrombin III mutations, protein C&S deficiencies and lupus anticoagulant have been ordered at [facility], however, the blood work was canceled because "denial by patient's insurance". The patient did not want to have blood drawn in the hospital. He stated he was afraid of needles. However, he was informed that he would need a workup for his hypercoagulability. He agreed to a blood draw. Labs were ordered and are currently pending. On patient's final hospital day, he was evaluated by plastic surgery who redressed his wounds. Patient's skin grafts appeared to be holding without signs of cellulitis. The patient Zyvox was discontinued. Patient was evaluated by physical therapy for home safety evaluation and had passed. Patient was to be discharged home with home physical therapy. Patient was to follow-up with plastic surgery in a week. Additionally, the patient was instructed to follow-up with his primary care physician for further workup and evaluation of his resistant hypertension. 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 Patient was counseled on the possibility of having Buerger's disease as he is a smoker at a young age with bilateral limb ischemia. Patient was informed that smoking is likely a major factor and contributes greatly if Buerger's disease is a diagnosis and that cessation of tobacco use is of great importance. Patient was offered smoking cessation tools including pharmacological options such as Chantix. The patient had refused and stated that he does not want to quit smoking. DISCHARGE MEDICATIONS: Please see below. ALLERGIES: Please see below. PHYSICAL EXAMINATION ON DISCHARGE: VITAL SIGNS: Please see below. GENERAL: Awake, alert and oriented, appears in no acute distress, sitting up in bed, accompanied by his father HEENT: Atraumatic, normocephalic. Eyes nonicteric. Trachea is midline NECK: No palpable cervical, supraclavicular or axillary lymphadenopathy CARDIOVASCULAR EXAMINATION:. Normal S1, S2, regular rate and rhythm. No clicks, rubs or murmurs RESPIRATORY EXAMINATION:. Clear vesicular breath sounds bilaterally. Good respiratory effort. No wheezes, rhonchi or rales ABDOMINAL EXAMINATION:. Obese, soft, nondistended, nontender to palpation in all 4 quadrants. No rebound tenderness or guarding. Positive bowel sounds throughout EXTREMITIES:. Left leg stump currently wrapped in Nishant bandage. Right foot wrapped in Nishant bandages well. Right thigh harvest site open to air. NEUROLOGICAL EXAMINATION: No focal neurological deficits PSYCHIATRIC EXAMINATION:. Mood and affect appear appropriate for situation LABORATORY DATA: Please see below. PROGNOSIS: Good ACTIVITY: As tolerated. DIET:. As tolerated DISCHARGE PLAN:. Patient is to be discharged home with home physical therapy. He is to follow-up with plastic surgery in one week for management of his skin grafts. He is to follow-up with his primary care physician for workup of his resistant hypertension. Including a workup for obstructive sleep apnea. He is instructed that he may need referral from his primary for a hypertensive specialist. 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 He was counseled on tobacco cessation. He was informed that his hypercoagulable state may be secondary to a vasculitis- like Buerger's disease and tobacco abuse may be greatly contributing to his hypercoagulability. Patient was instructed to continue his Xarelto DISPOSITION: 06 Home Health Service. DISCHARGE CONDITION: Stable. I saw and evaluated the patient. I agree with the findings and plan of care as documented in the documenters note. I spent 45 minutes coordinating this patient's discharge. Vital Signs/I&Os Vital Signs Date Time Temp Pulse Resp B/P (MAP) Pulse Ox O2 Delivery O2 Flow Rate FiO2 12/11/18 08:50 162/98 (119) 12/11/18 07:16 79 12/11/18 06:00 97.9 18 94 I&O- Last 24 Hours up to 6 AM 12/11/18 06:00 Intake Total 2280 ml Output Total 2100 ml Balance 180 ml Laboratory Data Labs 24H Laboratory Tests 2 12/10/18 15:43: Nucleated Red Blood Cells % (auto) 0.0, Erythrocyte Sedimentation Rate 8, Anion Gap 7L, Glomerular Filtration Rate > 60.0, Blood Urea Nitrogen 18, Creatinine 1.10, Sodium Level 138, Potassium Level 4.1, Chloride Level 102, Carbon Dioxide Level 29, Calcium Level 8.8, Aspartate Amino Transf (AST/SGOT) 23, Alanine Aminotransferase (ALT/SGPT) 66, Lactate Dehydrogenase 159, Alkaline Phosphatase 103, Total Bilirubin 0.2, Total Protein 6.9, Albumin 3.6, C-Reactive Protein, Quantitative 0.93H, Albumin/Globulin Ratio 1.09 CBC/BMP Laboratory Tests 12/10/18 15:43 Red Blood Count 5.17, Mean Corpuscular Volume 83.6, Mean Corpuscular Hemoglobin 27.3, Mean Corpuscular Hemoglobin Concent 32.6, Red Cell Distribution Width 15.3 H, Calcium Level 8.8, Aspartate Amino Transf (AST/SGOT) 23, Alanine Aminotransferase (ALT/SGPT) 66, Lactate Dehydrogenase 159, Alkaline Phosphatase 103, Total Bilirubin 0.2, Total Protein 6.9, Albumin 3.6 Microbiology Microbiology 12/04/18 Wound Culture - Final, Complete Enterobacter Cloacae Complex Strep Agalactiae Group B 12/04/18 Wound Culture - Final, Complete Enterobacter Cloacae Complex Staph.aureus Methicillin Resis Strep Agalactiae Group B Discharge Medications Scheduled Amlodipine Besylate (Amlodipine Besylate) 10 Mg Tablet, 10 MG PO DAILY, (Reported) Carvedilol (Carvedilol) 25 Mg Tablet, 25 MG PO BID, (Reported) Gabapentin (Gabapentin) 300 Mg Capsule, 300 MG PO TID, (Reported) Hydrochlorothiazide (Hydrochlorothiazide) 25 Mg Tablet, 25 MG PO DAILY Losartan Potassium (Losartan Potassium) 100 Mg Tablet, 100 MG PO DAILY, (Reported) Melatonin (Melatonin) 5 Mg Tab.rapdis, 5 MG PO QHS, (Reported) Nortriptyline HCl (Nortriptyline HCl) 25 Mg Capsule, 25 MG PO QHS, (Reported) Rivaroxaban (Xarelto) 20 Mg Tablet, 20 MG PO QPM, (Reported) Scheduled PRN Acetaminophen (Acetaminophen) 500 Mg Tablet, 1,000 MG PO BID PRN for ABDOMINAL PAIN, (Reported) Oxycodone HCl (Oxycodone HCl) 5 Mg Tablet, 5 MG PO PRN PRN for PAIN, (Reported) Tizanidine HCl (Tizanidine HCl) 4 Mg Tablet, 4 MG PO QIDP PRN for SPASMS, (Reported) Allergies Coded Allergies: ferrous fumarate (Unverified Allergy, Intermediate, MENS MULTIVIT CAUSED LIP SWELLING, RED HANDS, 12/10/18) ferrous gluconate (Unverified Allergy, Intermediate, MENS MULTIVIT CAUSED LIP SWELLING, RED HANDS, 12/10/18) folic acid (Unverified Allergy, Intermediate, MENS MULTIVIT CAUSED LIP SWELLING, RED HANDS, 12/10/18) lutein (Unverified Allergy, Intermediate, MENS MULTIVIT CAUSED LIP SWELLING, RED HANDS, 12/10/18) lycopene (Unverified Allergy, Intermediate, MENS MULTIVIT CAUSED LIP SWELLING, RED HANDS, 12/10/18) multivit with calcium, iron, and other minerals (Unverified Allergy, Intermediate, MENS MULTIVIT CAUSED LIP SWELLING, RED HANDS, 12/10/18) multivitamin (Unverified Allergy, Intermediate, MENS MULTIVIT CAUSED LIP SWELLING, RED HANDS, 12/10/18) multivitamin with iron,other minerals (Unverified Allergy, Intermediate, MENS MULTIVIT CAUSED LIP SWELLING, RED HANDS, 12/10/18) multivitamin with minerals (Unverified Allergy, Intermediate, MENS MULTIVIT CAUSED LIP SWELLING, RED HANDS, 12/10/18) KAMILA WRIGHT DO Dec 11, 2018 14:57 SUSI BISHOP MD Dec 14, 2018 11:30
[2018-12-16 09:06] LABS: DRVV SCREEN 67.4 SEC
[2018-12-16 09:08] LABS: PTT LUPUS TYPE ANTICOAG SCREEN 1.6 (0-1.2)
[2018-12-16 09:14] LABS: DRVV CONFIRM 42.1 SEC; LUPUS CONFIRM RATIO 1.1
[2018-12-16 09:51] LABS: NORMALIZED RATIO 1.45 (0.00-1.20)
[2018-12-17 11:09] LABS: ANTI THROMBIN 3 ANTIGEN IMMUNO 119 % (72-124); ANTI THROMBIN 3 FUNCT ACTIVITY 129 % (75-135); PROTEIN C FUNCTIONAL ACTIVITY 159 % (73-180); PROTEIN S FUNCTIONAL ACTIVITY 104 % (63-140)
== END 2018-12-11 09:55 | disposition home health service (06) | DRG 952 ==
LOC: M SDC 10:33 → M MS5PR 16:30 → M SDC 12-05 10:45 → M MS5PR 12-05 10:45 → EEVIPCON 12-05 10:45
PROVIDERS: ADMIT Plastic Surgery Surgery of the Hand; ATTEND Internal Medicine
PROC: 0YUH07Z Supplement Right Lower Leg with Autologous Tissue Substitute, Open Approach (ICD-10-PCS; 2018-12-04)
PROC: 0HDLXZZ Extraction of Left Lower Leg Skin, External Approach (ICD-10-PCS; 2018-12-04)
PROC: 0HDKXZZ Extraction of Right Lower Leg Skin, External Approach (ICD-10-PCS; 2018-12-04)
PROC: 0YU Anatomical Regions, Lower Extremities, Supplement (ICD-10-PCS; principal; 2018-12-04 12:35)
DX: T87.89 Other complications of amputation stump (principal); D68.59 Other primary thrombophilia; G54.6 Phantom limb syndrome with pain; B95.62 Methicillin resistant Staphylococcus aureus infection as the cause of diseases classified elsewhere; I10 Essential (primary) hypertension; F41.9 Anxiety disorder, unspecified; G47.00 Insomnia, unspecified; G47.33 Obstructive sleep apnea (adult) (pediatric); F17.210 Nicotine dependence, cigarettes, uncomplicated; Z86.718 Personal history of other venous thrombosis and embolism